=== PATIENT | female | born 1930 | race Caucasian/White ===

== ENCOUNTER 2016-11-11 20:40 | Inpatient (IN) ==
[2016-11-11] MEDS ORDERED: ONDANSETRON 4 MG/2 ML VIAL IV ONE (20:58)
[2016-11-11] MEDS ORDERED: HYDROmorphone 2 MG/ML SYRINGE IV ONE (20:58)
--- NOTE | 2016-11-11 20:59 | Emergency Department Note ---
Fall HPI - General Chief Complaint: Fall Stated Complaint: Fall Time Seen by Provider: 11/11/16 20:58 Source: patient Mode of arrival: EMS - History of Present Illness HPI Narrative: This patient says her knee gave out on her on the right side and she fell and she sustained a femur fracture. She's had both an artificial knee and hip on that side in the past. She has pain about the knee. Not much in the left hip pain and no other complaints of injury or pain. MD Complaint: fall Onset (ago): minute(s) Fall From: standing Fall Witnessed: yes, by family Place Fall Occurred: home Loss of Consciousness: none Prolonged Down Time?: no Symptoms Prior to Fall: none Context: tripped/slipped - Related Data Home Medications Medication Instructions Recorded Confirmed flaxseed oil 5 ml MISCELLANE BID ml 02/27/15 11/11/16 glucosamine sulfate 1,000 mg 1,000 mg PO QDAY cap 02/27/15 11/11/16 capsule polyethylene glycol 3350 17 gram 17 g PO QDAY each 02/27/15 11/11/16 oral powder packet hwtmydjh-Vr-qrv-Fe-FA 1 tab PO QDAY 02/10/16 11/11/16 tablet vitamin E (dl, acetate) 400 unit 400 unit PO QDAY 02/10/16 11/11/16 capsule vitamins A,C,T-mwdm-hxnwcy 14,320 1 cap PO QAM 02/10/16 11/11/16 unit-226 mg-200 unit capsule calcium carbonate 600 mg (1,500 1,500 mg PO QDAY tab 05/12/16 11/11/16 mg) tablet cholecalciferol (vitamin D3) 1,000 1,500 unit PO QDAY cap 05/12/16 11/11/16 unit capsule coenzyme Q10 100 mg capsule 100 mg PO QDAY 05/12/16 11/11/16 omeprazole 20 mg capsule,delayed 20 mg PO QAM cap 05/12/16 11/11/16 release Four wheeled walker 1 applic ONCE 11/11/16 11/11/16 Potassium Chloride 10 meq PO QAM 11/11/16 11/11/16 Warfarin [Coumadin] 2.5 mg PO QAM 11/11/16 11/11/16 Previous Rx's Medication Instructions Recorded carvedilol 3.125 mg tablet 3.125 mg PO BID #180 tab 05/12/16 furosemide 20 mg tablet 20 mg PO QDAY #30 tab 05/12/16 hydrocodone 10 mg-acetaminophen 1 tab PO Q6H PRN #90 tab 09/27/16 325 mg tablet warfarin 5 mg tablet 2.5 mg PO .COMPLEX #100 tab 11/04/16 Allergies Allergy/AdvReac Type Severity Reaction Status Date / Time Penicillins [PENICILLINS] Allergy Unknown Rash Verified 08/24/16 09:56 simvastatin [From Zocor] AdvReac Mild Weakness Verified 08/24/16 09:56 aspirin [ASPIRIN] AdvReac Unknown Nausea Verified 11/12/16 00:48 Review of Systems All systems ED: reviewed and negative except as stated. Fall PMH - Past Medical History Medical history: Reports: arthritis, atrial fibrillation, CHF, coronary artery disease, dementia, GERD, hyperlipidemia, hypertension, osteoporosis, peripheral artery disease, valvular heart disease, other Surgical history ED: Reports: cataract, cholecystectomy, hip replacement, knee replacement, orthopedic, other, pacemaker/AICD, VICTORINO/BSO, tonsillectomy Psychiatric history: Reports: no psych history Family history: Reports: other - Social History Alcohol use: Reports: None Drug use: Reports: none Physical Exam Right leg is in a splint and she does have some tenderness about the right knee. - General Limitations: no limitations General appearance: alert - Head Head exam: atraumatic - Eye Eye exam: Present: normal appearance - ENT ENT exam: normal exam - Neck Neck exam: Present: normal inspection - Chest Chest inspection: Present: normal inspection - Respiratory Respiratory exam: Present: normal lung sounds bilaterally - Cardiovascular Cardiovascular exam: Present: regular rate, normal rhythm, normal heart sounds - Abdominal Exam Abdominal exam: Present: soft. Absent: distention, tenderness - Neurological Exam Neurological exam: Present: alert - Psychiatric Psychiatric exam: Present: normal affect - Skin Skin exam: Present: warm, dry Course Vital Signs Temperature 97.8 F 11/11/16 20:42 Pulse Rate 86 11/11/16 20:42 Respiratory Rate 19 11/11/16 20:42 Blood Pressure 151/75 11/11/16 20:42 Pulse Oximetry (%) 98 11/11/16 20:42 Temperature 98.7 F 11/12/16 07:53 Pulse Rate 80 11/12/16 04:00 Respiratory Rate 18 11/12/16 07:53 Blood Pressure 142/57 11/12/16 07:53 Pulse Oximetry (%) 97 11/12/16 07:53 Fall - MDM Narrative Medical decision making narrative: Discussed the case with Dr. Kolb and Dr. Childress and the patient will be admitted to the hospital. - Lab Data Lab results reviewed: Yes I reviewed the patient's lab results. Result diagrams: 11/12/16 05:10 11/12/16 05:10 Lab Results 11/11/16 11/11/16 11/11/16 Range/Units 22:15 22:15 22:15 WBC 8.1 (4.5-11.0) K/mcL RBC 3.84 L (4.00-5.20) M/mcL Hgb 11.9 L (12.0-15.0) g/dL Hct 36.5 (36.0-48.0) % MCV 95.1 (80.0-100.0) fL MCH 31.0 (26.0-34.0) pg MCHC 32.6 (31.0-36.0) g/dL RDW 14.5 (11.5-14.5) % Plt Count 171 (140-440) K/mcL MPV 8.5 (7.4-10.4) fL Gran % 75.2 (38.0-78.0) % Lymph % (Auto) 14.8 L (15.5-49.0) % [place] % (Auto) 8.3 (1.0-9.0) % Eos % (Auto) 1.4 (0.0-7.0) % Baso % (Auto) 0.3 (0.0-2.0) % Gran # 6.1 (1.8-8.0) K/mcL Lymph # 1.2 L (1.5-4.8) K/mcL [place] # 0.7 (0.1-0.9) K/mcL Eos # 0.1 (0.0-0.7) K/mcL Baso # 0 (0.0-0.3) K/mcL POC PT 25.9 H (11.9-14.5) sec POC INR 2.2 H (0.9-1.2) Sodium 136 (133-145) mmol/L Potassium 3.9 (3.3-5.1) mmol/L Chloride 98 (96-108) mmol/L Carbon Dioxide 27 (22-30) mmol/L Anion Gap 11.0 (8-16) BUN 18 (8-23) mg/dl Creatinine 0.6 (0.6-1.1) mg/dl GFR Calculation 82 Glucose 105 (70-105) mg/dL Calcium 9.1 (8.6-10.4) mg/dl Total Bilirubin 0.4 (0.0-1.0) mg/dL AST 21 (0-37) U/l ALT 17 (0-40) U/l Alkaline Phosphatase 37 L (39-117) U/L Total Protein 6.8 (5.9-8.4) gm/dL Albumin 3.8 (3.2-5.2) gm/dL Globulin 3.0 (2.2-3.7) gm/dL Albumin/Globulin Ratio 1.3 (1.0-2.3) Urine Color Urine Appearance Urine pH (5.0-9.0) Ur Specific [place] (1.000-1.035) Urine Protein (NEG) mg/dL Urine Glucose (UA) (NEG) mg/dL Urine Ketones (NEG) mg/dL Urine Occult Blood (<0.03) mg/dL Urine Nitrate (NEG) Urine Bilirubin (NEG) mg/dL Urine Urobilinogen (NEG) mg/dL Ur Leukocyte Esterase (NEG) /uL Urine RBC (0-1) /hpf Urine WBC (0-4) /hpf Ur Squamous Epith Cells (0-4) /hpf Ur Transition Epith Cell (0-2) /hpf Urine Bacteria (0) /hpf Hyaline Casts (0-2) /lpf Urine Mucus (0) /hpf Ur Culture Indicated? 11/11/16 Range/Units 23:06 WBC (4.5-11.0) K/mcL RBC (4.00-5.20) M/mcL Hgb (12.0-15.0) g/dL Hct (36.0-48.0) % MCV (80.0-100.0) fL MCH (26.0-34.0) pg MCHC (31.0-36.0) g/dL RDW (11.5-14.5) % Plt Count (140-440) K/mcL MPV (7.4-10.4) fL Gran % (38.0-78.0) % Lymph % (Auto) (15.5-49.0) % [place] % (Auto) (1.0-9.0) % Eos % (Auto) (0.0-7.0) % Baso % (Auto) (0.0-2.0) % Gran # (1.8-8.0) K/mcL Lymph # (1.5-4.8) K/mcL [place] # (0.1-0.9) K/mcL Eos # (0.0-0.7) K/mcL Baso # (0.0-0.3) K/mcL POC PT (11.9-14.5) sec POC INR (0.9-1.2) Sodium (133-145) mmol/L Potassium (3.3-5.1) mmol/L Chloride (96-108) mmol/L Carbon Dioxide (22-30) mmol/L Anion Gap (8-16) BUN (8-23) mg/dl Creatinine (0.6-1.1) mg/dl GFR Calculation Glucose (70-105) mg/dL Calcium (8.6-10.4) mg/dl Total Bilirubin (0.0-1.0) mg/dL AST (0-37) U/l ALT (0-40) U/l Alkaline Phosphatase (39-117) U/L Total Protein (5.9-8.4) gm/dL Albumin (3.2-5.2) gm/dL Globulin (2.2-3.7) gm/dL Albumin/Globulin Ratio (1.0-2.3) Urine Color Yellow Urine Appearance Clear Urine pH 6.0 (5.0-9.0) Ur Specific [place] 1.012 (1.000-1.035) Urine Protein Neg (NEG) mg/dL Urine Glucose (UA) Negative (NEG) mg/dL Urine Ketones Neg (NEG) mg/dL Urine Occult Blood Neg (<0.03) mg/dL Urine Nitrate Neg (NEG) Urine Bilirubin Neg (NEG) mg/dL Urine Urobilinogen Neg (NEG) mg/dL Ur Leukocyte Esterase Neg (NEG) /uL Urine RBC 3 H (0-1) /hpf Urine WBC 2 (0-4) /hpf Ur Squamous Epith Cells 0 (0-4) /hpf Ur Transition Epith Cell < 1 (0-2) /hpf Urine Bacteria 0 (0) /hpf Hyaline Casts 3 H (0-2) /lpf Urine Mucus Few (0) /hpf Ur Culture Indicated? No - Radiology Data Radiology results reviewed: Yes I reviewed the patient's radiology results. (x- ray shows an oblique fracture of the distal femur on the right) Disposition Clinical Impression: Femur fracture, right Disposition: Xfer As Inpt ([facility]) Condition: Good
[2016-11-11] MEDS ORDERED: HYDROmorphone 2 MG/ML SYRINGE IV PRN ×2 (21:48→23:43)
--- NOTE | 2016-11-11 22:44 | Internal Med History&Physical ---
Medical - H&P: HPI Patient information: Note initiated : 11/11/16 at 10:41 pm Service Date, if different from initiated Date: [] Patient: Carolina Sweeney 86 y/o F admitted on for Fall. Chief Complaint: [] History of present illness: Ms. Sweeney is a 86 year old female the pacemaker, on chronic anticoagulation therapy who had a fall at her [facility] facility today. She believes she tried to stand up and turn and just did that poorly and lost her balance and fell Her memory does not appear entirely intact however. eR evaluation did show a distal right femur fracture. The patient is now admitted fortreatment. The patient otherwise denies that she has been feeling poorly lately. She denies fever or chills headaches or dizziness, new eye or ear symptoms,sore throat or cough chest pain or palpitations or heaviness, shortness of breath or wheezing, abdominal pain, nausea or vomiting or diarrhea. She does reportchronic constipation, which is managed with MiraLAX. She denies dysuria. She does have a past history of an MRSA UTI. 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/12/15 Dr Suarez - left external iliac artery Gait abnormality (Chronic) gait instability and weakness Gastroesophageal reflux (Chronic) Greater trochanteric bursitis of both hips (Chronic) 03/15/14 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 History of anemia (Chronic) Hyperlipidemia (Chronic) Hypertension (Chronic) Increased frequency of urination (Chronic) nocturnal Knee pain, 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 Chavez Influenza A (Resolved) 09/17/14- Dr. 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 Martino Urinary tract infection (Resolved) Vaccine counseling (Resolved) Volume depletion (Resolved) Surgical History H/O cervical spine surgery (Resolved) decompression. 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 History of cataract surgery (Resolved) History of cholecystectomy (Resolved) History of esophagogastroduodenoscopy (Resolved) 11/14/14- Schatki's ring 02/01/11- gastritis, duodenitis, schatzki ring History of laminectomy (Resolved) decompression C1-2 History of left hip replacement (Resolved) History of lumbosacral spine surgery (Resolved) multiple lumbar surgeries History of right hip replacement (Resolved) History of total right knee replacement (Resolved) 05/2013 History of varicose vein stripping (Resolved) Hx of colonoscopy (Resolved) 01/28/11 diverticuli, adenoma Hx of tonsillectomy (Resolved) Pacemaker (Resolved) pacemaker/defibrillator Status post VICTORINO-BSO (Resolved) Medication List calcium carbonate (Calcium) 1,500 mg (2.5 x 600 mg (1,500 mg)) PO QDAY carvedilol 3.125 mg PO BID cholecalciferol (vitamin D3) 1,500 units (1.5 x 1,000 unit) PO QDAY clobetasol 0.05% 1 applic Topical BID PRN clobetasol 0.05% 1 applic Topical BID PRN coenzyme Q10 100 mg PO QDAY flaxseed oil 5 mL Miscellaneous BID [Four wheeled walker with seat and brakes with seat and brakes] furosemide 20 mg PO QDAY glucosamine sulfate 1,000 mg PO QDAY hydrocodone-acetaminophen 10-325 mg 1 tab PO Q6H PRN lactobacillus combination no.8 (Adult Probiotic) 3,000 mmu cells PO QDAY omeprazole 20 mg PO QDAY polyethylene glycol 3350 17 grams PO QDAY potassium chloride ER 10 mEq PO QDAY 1 month ofxjrzec-Ke-iys-Fe-FA tablet ( Vitamin tablet) 1 tab PO QDAY vitamin E (dl, acetate) 400 units PO QDAY vitamins A,C,K-xjzy-spcyxt 14,320-226-200 maij-ib-jxto (PreserVision AREDS) caps PO warfarin 2.5 mg daily Allergies/Adverse Reactions Penicillins [PENICILLINS] Allergy (Unknown, Verified 08/04/16 15:13) Rash simvastatin [From Zocor] Adverse Reaction (Mild, Verified 08/04/16 15:13) Weakness aspirin [ASPIRIN] Adverse Reaction (Unknown, Verified 08/04/16 15:13) Nausea Family History sister Malignant neoplasm of breast grand-daughter Cerebrovascular Disease grand-daughter in her 30's had CVA Father Malignant neoplasm of colon Mother Cardiac disease Social History household members: alone housing: assisted living facility lives independently: No marital status: education level: high school occupational status: retired smoking status: Never smoker alcohol intake frequency: does not drink substance use type: does not use Medical - H&P: Meds Home Medications Medication Instructions Recorded Confirmed Type flaxseed oil 5 ml MISCELLANE BID ml 02/27/15 11/11/16 History glucosamine sulfate 1,000 mg 1,000 mg PO QDAY cap 02/27/15 11/11/16 History capsule polyethylene glycol 3350 17 gram 17 g PO QDAY each 02/27/15 11/11/16 History oral powder packet dkxasshk-Ef-vso-Fe-FA 1 tab PO QDAY 02/10/16 11/11/16 History tablet vitamin E (dl, acetate) 400 unit 400 unit PO QDAY 02/10/16 11/11/16 History capsule vitamins A,C,Z-lzsv-cwtsmk 14,320 1 cap PO QAM 02/10/16 11/11/16 History unit-226 mg-200 unit capsule calcium carbonate 600 mg (1,500 1,500 mg PO QDAY tab 05/12/16 11/11/16 History mg) tablet carvedilol 3.125 mg tablet 3.125 mg PO BID #180 tab 05/12/16 11/11/16 Rx cholecalciferol (vitamin D3) 1,000 1,500 unit PO QDAY cap 05/12/16 11/11/16 History unit capsule coenzyme Q10 100 mg capsule 100 mg PO QDAY 05/12/16 11/11/16 History furosemide 20 mg tablet 20 mg PO QDAY #30 tab 05/12/16 11/11/16 Rx omeprazole 20 mg capsule,delayed 20 mg PO QAM cap 05/12/16 11/11/16 History release hydrocodone 10 mg-acetaminophen 1 tab PO Q6H PRN #90 tab 09/27/16 11/11/16 Rx 325 mg tablet warfarin 5 mg tablet 2.5 mg PO .COMPLEX #100 tab 11/04/16 11/11/16 Rx Four wheeled walker 1 applic ONCE 11/11/16 11/11/16 History Potassium Chloride 10 meq PO QAM 11/11/16 11/11/16 History Warfarin [Coumadin] 2.5 mg PO QAM 11/11/16 11/11/16 History Allergies Allergy/AdvReac Type Severity Reaction Status Date / Time Penicillins [PENICILLINS] Allergy Unknown Rash Verified 08/24/16 09:56 simvastatin [From Zocor] AdvReac Mild Weakness Verified 08/24/16 09:56 aspirin [ASPIRIN] AdvReac Unknown Nausea Verified 11/12/16 00:48 Medical - H&P: Exam - Constitutional Vitals: Temp Pulse Resp BP Pulse Ox 97.8 F 79 19 99/72 97 11/11/16 20:42 11/11/16 22:30 11/11/16 20:42 11/11/16 22:30 11/11/16 22:30 Exam: n exam, she is a well-developed well-nourished elderly female who is in no acute distress unless her right leg is touched. Head: Normocephalic, atraumatic. eyes: PERRLA, EOMI, anicteric. Ears: TMs and canals are clear. Pharynx:Pharynx is clear. Teeth are in good repair. She does have a partial bridge in place. Neck; Is supple, without obvious lymphadenopathy, JVD, thyromegaly, bruits. cardiac exam shows regular rate and rhythm, with normal S1 and S2. there may be a 1/6 systolic ejection murmur, but no rubs or gallops are noted. Lungs are clear to auscultation, without rales, rhonchi, wheezes. Abdomen is soft and nontender with no obvious masses. Extremities: The right upper leg is quite swollen, and is heldin a partially flexed position on a pillow. She has a great deal of pain of the right leg is touched. Left lower extremity is normal in appearance, without cyanosis, clubbing, edema. Pulses appear intact bilaterally. Neurologic exam: The patient appears a bit forgetful, although she is quite conversational. Motor exam is grossly nonfocal. Skin exam does not show any rashes or other worrisome lesions. Medical - H&P: Reslt - Labs CBC & Chem 7: 11/12/16 05:10 11/12/16 05:10 Labs: PT/INR; 25/2.2 EKG:appears to be paced with a heart rate of about 70. Chest x-ray:he heart is markedly enlarged, but unchanged. Pacemaker leads are seen. There is minor upper pulmonary vessel distention. Femur x-ray:x-ray of the right leg shows a mildly displaced and minimally angulated spiral fracture of the distal femoral diaphysis. Right hip and right knee prostheses are in place as well. Head CT:head CT showed mild atrophy and chronic ischemic changes, typical for age. 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 Martino Current visit: No Status: Chronic - Narrative A/P Narrative: #1. Orthopedics. -Femur fracture. Orthopedics will evaluate in the morning regarding possible surgery Patient will be made nothing by mouth for the morning, and I will hold off on DVT prophylaxis until the decision is made. -warfarin will be held. the patient may need vitamin K prior to surgery depending on what orthopedics INR goal is. #2. Cardiac. -history of coronary disease and CHF..continue perioperative Coreg and Lasix. -history of atrial fibrillation.-resume warfarin after surgery. Consider fuse cutter postop. -because of her cardiac history, she will obviously be at increased risk for complications of surgery. She will need close follow-up during the perioperative period. -Also continue close monitoring of blood pressure. #3. Chronic pain, appears likely, given her history. #4. DVT prophylaxis: I would expect we will resume warfarin postop. #5. CODE STATUS:we believe the patient is a full code, although this needs to be verified with her daughter, who has her POA. #6. Neurologic. History of dementia. #7. GI. Continue proton pump inhibitor for ulcer prophylaxis. #8. Infectious disease. -the patient does have a history of an MRSA UTI. Will check a screening urinalysis. #9. History of osteoporosis, which likely contributed to her fracture. Continue calcium and vitamin D supplements. it is not entirely clear if she has been receiving probably injections lately. this visit took approximately 60 minutes, to review the patient's case with the TAMMY Anderson, review her records and test results, interview and examine her, and write orders.
[2016-11-11 22:56] LABS: Basophils # (Auto) 0 K/mcL (0.0-0.3); Basophils % (Auto) 0.3 % (0.0-2.0); Eosinophils # (Auto) 0.1 K/mcL (0.0-0.7); Eosinophils % (Auto) 1.4 % (0.0-7.0); Granulocytes % (Auto) 75.2 % (38.0-78.0); Lymphocytes # (Auto) 1.2 K/mcL (1.5-4.8); Lymphocytes % (Auto) 14.8 % (15.5-49.0); Mean Cell Volume 95.1 fL (80.0-100.0); Mean Corpuscular HGB Conc 32.6 g/dL (31.0-36.0); Monocytes # (Auto) 0.7 K/mcL (0.1-0.9); Monocytes % (Auto) 8.3 % (1.0-9.0); Platelet Count 171 K/mcL (140-440); RBC 3.84 M/mcL (4.00-5.20); Red Cell Distribution Width 14.5 % (11.5-14.5)
[2016-11-11 23:04] LABS: ALT/SGPT 17 U/l (0-40); Albumin 3.8 gm/dL (3.2-5.2); Albumin/Globulin Ratio 1.3 (1.0-2.3); Alkaline Phosphatase 37 U/L (39-117); Blood Urea Nitrogen 18 mg/dl (8-23)
[2016-11-11 23:37] LABS: Appearance,Urine CLEAR; Bacteria,Urine 0 /hpf (0); Bilirubin,Urine NEG (NEG); Color,Urine YELLOW; Glucose,Urine (UA) NEGATIVE (NEG); Leukocyte Esterase,Urine NEG /uL (NEG); Mucus,Urine FEW /hpf (0); Nitrate,Urine NEG (NEG); Protein,Urine NEG (NEG); Specific Gravity,Urine 1.012 (1.000-1.035); Urine Blood NEG mg/dL (<0.03); Urine Hyaline Cast 3 /lpf (0-2); Urine RBC 3 /hpf (0-1); Urine Squamous Epithelial Cell 0 /hpf (0-4); Urine Transitional Epi Cells < 1 /hpf (0-2); Urine WBC 2 /hpf (0-4); Urobilinogen,Urine NEG (NEG)
[2016-11-11] MEDS ORDERED: MAGNESIUM HYDROXIDE 30 ML ORAL.SUSP PO PRN (23:43)
[2016-11-11] MEDS ORDERED: HYDROcodone/APAP 10/325MG TABLET PO PRN (23:43)
[2016-11-11] MEDS ORDERED: NALOXONE HCL 0.4 MG/ML VIAL IV PRN (23:43)
[2016-11-11] MEDS ORDERED: ONDANSETRON ODT 4 MG TABLET SL PRN (23:43)
[2016-11-11] MEDS ORDERED: ACETAMINOPHEN 325 MG TABLET PO PRN (23:43)
[2016-11-11] MEDS ORDERED: HYDROmorphone 2 MG/ML SYRINGE ONE (23:56)
[2016-11-12] MEDS ORDERED: HYDROmorphone 2 MG/ML SYRINGE IV PRN ×4 (00:24→20:29)
[2016-11-12] MEDS ORDERED: HYDROmorphone 2 MG/ML SYRINGE ONE ×2 (03:17→20:33)
[2016-11-12] MEDS: 0.9 % SODIUM CHLORIDE 10 ML SYRINGE IV SCH ×3 (05:29→22:52)
[2016-11-12] MEDS ORDERED: PHYTONADIONE 10 MG/ML AMPUL SQ ONE (06:21)
[2016-11-12 06:22] LABS: Basophils # (Auto) 0 K/mcL (0.0-0.3); Basophils % (Auto) 0.2 % (0.0-2.0); Eosinophils # (Auto) 0.1 K/mcL (0.0-0.7); Eosinophils % (Auto) 1.4 % (0.0-7.0); Granulocytes % (Auto) 73.5 % (38.0-78.0); Lymphocytes # (Auto) 1.3 K/mcL (1.5-4.8); Lymphocytes % (Auto) 14.6 % (15.5-49.0); Mean Cell Volume 94.7 fL (80.0-100.0); Mean Corpuscular HGB Conc 32.2 g/dL (31.0-36.0); Mean Corpuscular Hemoglobin 30.5 pg (26.0-34.0); Monocytes # (Auto) 0.9 K/mcL (0.1-0.9); Monocytes % (Auto) 10.3 % (1.0-9.0); Platelet Count 168 K/mcL (140-440); RBC 3.68 M/mcL (4.00-5.20); Red Cell Distribution Width 14.6 % (11.5-14.5)
[2016-11-12 06:50] LABS: ALT/SGPT 15 U/l (0-40); Albumin 3.8 gm/dL (3.2-5.2); Albumin/Globulin Ratio 1.5 (1.0-2.3); Alkaline Phosphatase 33 U/L (39-117); Blood Urea Nitrogen 15 mg/dl (8-23)
--- NOTE | 2016-11-12 06:57 | Cat Scan Report ---
CLINICAL INFORMATION: ] Closed head injury - patient on warfarin COMPARISON: None. TECHNIQUE: 2.5 mm helical slices were obtained in the skull base to vertex. Following reconstruction, axial reformatted images were reviewed at bone and parenchymal windows. FINDINGS: The ventricles, sulci, fissures, and cisterns are symmetrically enlarged palpable with mild age-related atrophy - no extra-axial fluid collections or masses are appreciated. Patchy chronic ischemic changes in the cerebral white matter typical for age and unchanged from previous study. There is no acute cerebral hemorrhage, mass effect, edema or other acute finding. Bone windows shows no fracture or other osseous abnormality. IMPRESSION: Mild atrophy and chronic ischemic changes in the cerebral white matter - typical for age and unchanged from previous study. No hemorrhage or other acute process. Interpreted and Authenticated by: Nitin Morrison 11/12/16
--- NOTE | 2016-11-12 06:59 | XRay Report ---
CLINICAL INFORMATION: Trauma COMPARISON: None. FINDINGS: There is a mildly displaced minimally comminuted spiral fracture of the distal femoral diaphysis. The distal fragment displaced less than 1 cm medially and posteriorly. There is also very slight angulation deformity. Right hip prostheses and right total knee prostheses are in anatomic alignment without evidence of loosening or infection. Soft tissue swelling over the fracture site expected. IMPRESSION: Mildly displaced and minimally angulated spiral fracture of the distal femoral diaphysis. Interpreted and Authenticated by: Nitin Morrison 11/12/16
--- NOTE | 2016-11-12 07:01 | XRay Report ---
CLINICAL INFORMATION: Trauma COMPARISON: 08/24/2016 FINDINGS: The heart is markedly enlarged, but unchanged. Pacemaker and leads in stable satisfactory position. Mediastinum is unremarkable. Upper lobe pulmonary vessels are slightly distended, but there is no edema. Few calcified granulomas in the perihilar region seen as before. No infiltrates or effusions. No evidence of fracture - bones are normal IMPRESSION: No acute posttraumatic change. Borderline CHF or volume overload Interpreted and Authenticated by: Nitin Morrison 11/12/16
[2016-11-12] MEDS: CARVEDILOL 3.125 MG TABLET PO SCH ×2 (07:24→16:55)
[2016-11-12] MEDS: CALCIUM CARBONATE 500 MG TAB.CHEW CHEWED SCH ×2 (07:29→15:27)
[2016-11-12] MEDS ORDERED: PANTOPRAZOLE 40 MG TABLET PO SCH (07:30)
[2016-11-12] MEDS: POTASSIUM CHLORIDE 10 MEQ TABLET PO SCH ×2 (07:30→07:33)
[2016-11-12] MEDS ORDERED: POLYETHYLENE GLYCOL 3350 17 GM PACKET PO SCH (09:00)
[2016-11-12] MEDS ORDERED: FAMOTIDINE 20 MG TABLET PO SCH (09:00)
[2016-11-12] MEDS ORDERED: VITAMIN D3 1,000 UNIT TABLET PO SCH (09:00)
[2016-11-12] MEDS ORDERED: DOCUSATE SODIUM 100 MG CAPSULE PO SCH ×3 (09:00→21:00)
[2016-11-12] MEDS ORDERED: GLUCOSAMINE/CHONDROITIN SULF A 1 CAP CAPSULE PO SCH (09:00)
[2016-11-12] MEDS ORDERED: NON FORMULARY MEDICATION 1 DOSE MISCELL (Ubidecarenone [Coenzyme Q10] 100 MG) PO SCH (09:00)
[2016-11-12] MEDS ORDERED: PRENATAL VIT/IRON FUMARATE/FA 1 TAB TABLET PO SCH (09:00)
[2016-11-12] MEDS ORDERED: FUROSEMIDE 20 MG TABLET PO SCH (09:00)
[2016-11-12] MEDS ORDERED: 0.9 % SODIUM CHLORIDE 250 ML IV SCH ×2 (09:30→20:29)
--- NOTE | 2016-11-12 10:56 | Internal Med Progress Note ---
Medical - PN: Subj Patient information: Note initiated : 11/12/16 at 10:56 am Service Date, if different from initiated Date: [] Patient: Carolina Sweeney 86 y/o F admitted on 11/11/16 for Fall/Right Femur Fracture. Chief Complaint: [] Interval history: November 11, 2016:History of present illness: Ms. Sweeney is a 86 year old female the pacemaker, on chronic anticoagulation therapy who had a fall at her [place] facility today. She believes she tried to stand up and turn and just did that poorly and lost her balance and fell Her memory does not appear entirely intact however. eR evaluation did show a distal right femur fracture. The patient is now admitted for treatment. She does have a past history of an MRSA UTI. November 12, 2016: This morning,the patient reports she is feeling fine, as long she does notmove her right leg at all. She denies fever or chills, chest pain palpitations, shortness of breath. She denies abdominalpain, nausea or vomiting , diarrhea or constipation, dysuria. Nursing staff did note that her O2 saturations tend to drop during sleep, so oxygen is in place. -INR remains elevated today, and orthopedics needs this to be less than 1.4 prior to surgery. - Constitutional Vitals: Vital Signs Temp Pulse Resp BP Pulse Ox 98.7 F 80 18 142/57 97 11/12/16 07:53 11/12/16 04:00 11/12/16 07:53 11/12/16 07:53 11/12/16 07:53 Period Temp Pulse Resp BP Sys/Yu Pulse Ox Last 24 Hr 97.5 F-98.7 F 79-80 14-19 114-142/54-99 94-98 Intake and Output 11/11/16 11/12/16 11/12/16 21:59 05:59 13:59 Output Total 475 / 875 Balance -475 / -875 Intake & Output: Intake & Output 11/11/16 11/12/16 11/12/16 21:59 05:59 13:59 Output Total 475 / 875 Balance -475 / -875 Output: Urine Catheter Amount 475 / 475 Exam: on exam, the patient is in no acute distress. Neck shows no obvious JVD or lymphadenopathy. Cardiac exam shows regular rate and rhythm. Lungs are clear to auscultation. Abdomen is soft and nontender. extremities:Right upper leg continues markedly swollen. Distal leg has good pulses.Left lower extremity appears normal. Neurologic exam is grossly nonfocal. Medical - PN: Obj Da - Labs CBC & Chem 7: 11/12/16 05:10 11/12/16 05:10 Labs: Abnormal Lab Results 11/12/16 11/12/16 11/12/16 06:30 05:10 05:10 RBC 3.68 L Hgb 11.2 L Hct 34.9 L RDW 14.6 H Lymph % (Auto) 14.6 L [place] % (Auto) 10.3 H Lymph # 1.3 L PT 29.3 H INR 2.7 H Glucose 111 H Alkaline Phosphatase 33 L iNR at noon, has dropped to 1.6. November 11: urinalysis from November 11, was essentially normal. EKG:appears to be paced with a heart rate of about 70. Chest x-ray:he heart is markedly enlarged, but unchanged. Pacemaker leads are seen. There is minor upper pulmonary vessel distention. Femur x-ray:x-ray of the right leg shows a mildly displaced and minimally angulated spiral fracture of the distal femoral diaphysis. Right hip and right knee prostheses are in place as well. Head CT:head CT showed mild atrophy and chronic ischemic changes, typical for age. Meds: Medications Acetaminophen (Tylenol) 650 mg PO Q6HP PRN PRN Reason: PAIN/FEVER > 101 Acetaminophen/Hydrocodone Bitart ([place] 10/325mg) 1 tab PO Q4-6HP PRN PRN Reason: Pain Calcium Carbonate/Glycine (Tums) 500 mg CHEWED BIDAC [facility] Last Admin: 11/12/16 07:29 Dose: Not Given Carvedilol (Coreg) 3.125 mg PO BIDCC [facility] Last Admin: 11/12/16 07:24 Dose: 3.125 mg Docusate Sodium (Colace) 100 mg PO BID [facility] Last Admin: 11/12/16 07:29 Dose: Not Given Famotidine (Pepcid) 20 mg PO BID [facility] Last Admin: 11/12/16 07:30 Dose: Not Given Furosemide (Lasix) 20 mg PO QDAY [facility] Last Admin: 11/12/16 07:30 Dose: Not Given Glucosamine/Chondroitin (Glucosamine-Chondroitin Cap) 1 cap PO DAILY [facility] Last Admin: 11/12/16 07:29 Dose: Not Given Hydromorphone HCl (Dilaudid) 0.5 mg IV Q1HP PRN PRN Reason: Pain Sodium Chloride (Sodium Chloride 0.9%) 250 mls @ 20 mls/hr IV .[id number] [facility] Stop: 11/12/16 21:59 Last Admin: 11/12/16 09:39 Dose: Not Given Magnesium Hydroxide (Milk Of Magnesia) 30 ml PO DAILYP PRN PRN Reason: Constipation Naloxone HCl (Narcan) 0.1 mg IV Q2MIN PRN PRN Reason: Opiate Reversal Ondansetron HCl (Zofran Odt) 4 mg SL Q6HP PRN PRN Reason: Nausea And Vomiting Pantoprazole Sodium (Protonix) 40 mg PO QAMAC [facility] Last Admin: 11/12/16 07:29 Dose: Not Given Polyethylene Glycol (Miralax) 17 gm PO QDAY [facility] Last Admin: 11/12/16 07:33 Dose: Not Given Potassium Chloride (Kdur) 10 meq PO QAC [facility] Last Admin: 11/12/16 07:33 Dose: Not Given Prenat Multivit/Sunflower/Iron/Folic Ac ( Vitamin) 1 tab PO DAILY [facility] Last Admin: 11/12/16 07:30 Dose: Not Given Sodium Chloride (Saline Flush) 10 ml IV Q8 [facility] Last Admin: 11/12/16 05:29 Dose: Not Given Vitamin D (Vitamin D3) 1,500 unit PO DAILY [facility] Last Admin: 11/12/16 07:30 Dose: Not Given Medical - PN: A/P - Time Spent With Patient Total time spent is greater than 50% in coordination of care (as documented) at patient's floor/unit and/or counseling patient: (1) Femur fracture Status: Acute Current Visit: Yes (2) Atrial fibrillation Status: Chronic Current Visit: No (3) CAD (coronary artery disease) Status: Chronic Current Visit: No (4) Hypertension Status: Chronic Current Visit: No (5) snf current use of anticoagulant therapy Problem details: currently on coumadin Status: Chronic Current Visit: No (6) Memory Loss Status: Chronic Current Visit: No (7) Osteoporosis Problem details: T=-4.5 left forearm Status: Chronic Current Visit: No (8) Sinoatrial node dysfunction Problem details: 09/13/14- Dr. Martino Status: Chronic Current Visit: No - Narrative A/P Narrative: #1. Orthopedics. -Femur fracture. orthopedic surgery is tentatively planned for this evening. -warfarin is on hold, and vitamin K and 1 unit of FFP were given this morning. INR is down to 1.6, and should continue to drop over the next 6 hours, so I think we can proceed with surgery this evening. #2. Cardiac. -history of coronary disease and CHF..continue perioperative Coreg and Lasix. -history of atrial fibrillation.-resume warfarin after surgery. I would like to resume her Coumadin this evening. Consider slip tender postop. -because of her cardiac history, she will obviously be at increased risk for complications of surgery. She will need close follow-up during the perioperative period. -Also continue close monitoring of blood pressure. #3. Chronic pain, appears likely, given her history. #4. DVT prophylaxis: I would expect we will resume warfarin postop. #5. CODE STATUS: The patient seemed to want a full code as of last evening. Her daughter is here this morning, and is her POA. The daughter thinks the living will indicates she prefers a DNR status. We will leave her as a full code, until I have a chance to discuss further. #6. Neurologic. History of dementia. #7. GI. Continue proton pump inhibitor for ulcer prophylaxis. #8. Infectious disease. -the patient does have a history of an MRSA UTI. urinalysis does not show signs of infection at this time. #9. History of osteoporosis, which likely contributed to her fracture. Continue calcium and vitamin D supplements. it is not entirely clear if she has been receiving probably injections lately. approximate 35 minutes was spent today, reviewing the patient's test results, conferring with staff and orthopedics, writing orders and then reviewing follow- up test results, as well as interviewing and examining the patient and reviewing the plan with her and her daughter Medical - PN: Qual - VTE Deep Vein Thrombosis/Pulmonary Embolism Present on Admission: No
[2016-11-12] MEDS ORDERED: ceFAZolin 1 GM VIAL IV SCH ×3 (17:00→20:29)
[2016-11-12] MEDS ORDERED: SUCCINYLCHOLINE 20 MG/ML ML IV ONE (17:05)
[2016-11-12] MEDS ORDERED: TRANEXAMIC ACID 1,000 MG/10 ML VIAL IV ONE ×2 (17:05→19:21)
[2016-11-12] MEDS ORDERED: ONDANSETRON 4 MG/2 ML VIAL IV ONE (17:05)
[2016-11-12] MEDS ORDERED: GLYCOPYRROLATE 0.2 MG/ML VIAL IV ONE (17:05)
[2016-11-12] MEDS ORDERED: fentaNYL 250 MCG/5 ML VIAL IV ONE (17:05)
[2016-11-12] MEDS ORDERED: PHENYLEPHRINE 10 MG/ML VIAL IV ONE (17:05)
[2016-11-12] MEDS ORDERED: KETAMINE 100 MG/ML ML IV ONE (17:05)
[2016-11-12] MEDS ORDERED: LIDOCAINE HCL/PF 100 MG/5 ML SYRINGE IV ONE (17:05)
[2016-11-12] MEDS ORDERED: ETOMIDATE 20 MG/10 ML VIAL IV ONE (17:05)
[2016-11-12] MEDS ORDERED: MIDAZOLAM 5 MG/5 ML VIAL IV ONE (17:05)
[2016-11-12] MEDS ORDERED: ceFAZolin 1 GM VIAL ONE (18:30)
[2016-11-12] MEDS ORDERED: fentaNYL 100 MCG/2 ML VIAL IV PRN (19:17)
[2016-11-12] MEDS ORDERED: LABETALOL 5 MG/ML ML IV PRN (19:17)
[2016-11-12] MEDS ORDERED: METHOCARBAMOL 1,000 MG/10 ML VIAL IV PRN (19:17)
[2016-11-12] MEDS ORDERED: PROMETHAZINE 25 MG/ML VIAL IV PRN (19:17)
[2016-11-12] MEDS ORDERED: BENZOCAINE/MENTHOL 1 LOZENGE PO PRN ×3 (19:17→20:29)
[2016-11-12] MEDS ORDERED: MEPERIDINE 25 MG/ML SYRINGE IV PRN (19:17)
[2016-11-12] MEDS ORDERED: IPRATROPIUM/ALBUTEROL 3 ML AMPUL.NEB NEB PRN (19:17)
--- NOTE | 2016-11-12 19:19 | Brief Operative Note ---
Date of procedure: 11/12/16 Pre-op diagnosis: right distal femur periprosthetic fracture Post-op diagnosis: same Procedure: open reduction internal fixation of right periprosthetic femur fracture Grafts/Implants: Yes Anesthesia: GETA Complications: none Surgeon: Nitin Kolb [employer] Workers: Lior Dela Cruz Estimated blood loss (cc): 400 Specimens Removed/Pathology: none sent Condition: stable Disposition: PACU
[2016-11-12] MEDS ORDERED: ONDANSETRON ODT 4 MG TABLET SL PRN ×3 (19:21→20:29)
[2016-11-12] MEDS ORDERED: MAGNESIUM HYDROXIDE 30 ML ORAL.SUSP PO PRN ×3 (19:21→20:29)
[2016-11-12] MEDS ORDERED: ONDANSETRON 4 MG/2 ML VIAL IV PRN ×2 (19:21→20:29)
[2016-11-12] MEDS ORDERED: BISACODYL 10 MG SUPP.RECT PR PRN ×2 (19:21→20:29)
[2016-11-12] MEDS ORDERED: METHOCARBAMOL 750 MG TABLET PO PRN ×2 (19:21→20:29)
[2016-11-12] MEDS ORDERED: HYDROcodone/APAP 10/325MG TABLET PO PRN ×3 (19:21→20:29)
[2016-11-12] MEDS ORDERED: FLEETS ADULT ENEMA PR PRN ×2 (19:21→20:29)
[2016-11-12] MEDS ORDERED: POLYETHYLENE GLYCOL 3350 17 GM PACKET PO PRN ×2 (19:21→20:29)
[2016-11-12] MEDS ORDERED: LACTATED RINGERS 1,000 ML IV SCH (19:30)
[2016-11-12] MEDS ORDERED: 0.9 % SODIUM CHLORIDE 1,000 ML IV SCH (19:30)
[2016-11-12] MEDS: HYDROmorphone 2 MG/ML SYRINGE IV PRN (19:40)
[2016-11-12] MEDS ORDERED: NALOXONE HCL 0.4 MG/ML VIAL IV PRN (20:29)
[2016-11-12] MEDS ORDERED: ACETAMINOPHEN 325 MG TABLET PO PRN (20:29)
[2016-11-12] MEDS: 0.9 % SODIUM CHLORIDE 1,000 ML IV SCH (20:49)
[2016-11-12] MEDS ORDERED: SENNOSIDES 1 TABLET PO SCH ×2 (21:00)
[2016-11-12] MEDS: WARFARIN 2.5 MG TABLET PO SCH (22:50)
[2016-11-12] MEDS: DOCUSATE SODIUM 100 MG CAPSULE PO SCH (22:51)
[2016-11-12] MEDS: FAMOTIDINE 20 MG TABLET PO SCH (22:51)
[2016-11-13] MEDS ORDERED: ACETAMINOPHEN 1,000 MG/100 ML BOTTLE IV SCH
[2016-11-13] MEDS: ceFAZolin 1 GM VIAL IV SCH ×2 (03:13→10:40)
[2016-11-13] MEDS: HYDROmorphone 2 MG/ML SYRINGE IV PRN ×2 (04:15→09:06)
[2016-11-13] MEDS: 0.9 % SODIUM CHLORIDE 10 ML SYRINGE IV SCH ×3 (05:45→23:18)
[2016-11-13] MEDS ORDERED: PANTOPRAZOLE 40 MG TABLET PO SCH (07:30)
[2016-11-13] MEDS: 0.9 % SODIUM CHLORIDE 1,000 ML IV SCH ×3 (07:34→18:16)
[2016-11-13] MEDS: CALCIUM CARBONATE 500 MG TAB.CHEW CHEWED SCH ×2 (07:57→18:16)
[2016-11-13] MEDS ORDERED: POTASSIUM CHLORIDE 10 MEQ TABLET PO SCH (08:00)
[2016-11-13] MEDS ORDERED: CARVEDILOL 3.125 MG TABLET PO SCH (08:00)
--- NOTE | 2016-11-13 08:13 | Orthopedic Progress Note ---
Subjective Patient information: Note initiated : 11/13/16 at 8:10 am Service Date, if different from initiated Date: [] Patient: Carolina Sweeney 86 y/o F admitted on 11/11/16 for Fall/Right Femur Fracture. Chief Complaint: [] Interval history: doing ok today. pain under control Objective Vital signs: Vital Signs Temp Pulse Pulse Resp BP Pulse Ox 11/13/16 06:00 16 99/49 92 11/13/16 05:03 16 100/46 93 11/13/16 04:00 98.6 F 16 100/54 94 11/13/16 03:00 16 102/52 93 11/13/16 02:04 79 18 94 11/13/16 02:00 18 97/48 92 11/13/16 01:00 16 99/49 96 11/13/16 00:57 80 18 94 11/13/16 00:07 98.2 F 16 108/50 100 11/12/16 23:00 18 107/47 98 11/12/16 22:30 98.0 F 16 95/55 98 11/12/16 21:30 97.8 F 18 108/95 99 11/12/16 21:05 97.9 F 16 105/46 100 11/12/16 20:50 97.9 F 16 118/60 96 11/12/16 20:35 98.0 F 16 120/52 98 11/12/16 20:20 98.0 F 18 118/54 96 11/12/16 19:55 98.1 F 79 12 131/50 100 11/12/16 19:40 80 14 134/48 96 11/12/16 19:25 98.0 F 82 12 130/54 98 11/12/16 11:43 98.5 F 16 136/56 97 Intake and Output 11/12/16 11/13/16 11/13/16 21:59 05:59 13:59 Intake Total 1500 / 1500 1000 / 1000 Output Total 1600 / 1600 200 / 200 Balance -100 / -100 -200 / -200 1000 / 1000 Intake: IV 1000 / 1000 Sodium Chloride 0.9% 1, 1000 / 1000 000 ml @ 100 mls/hr IV . Q10H [facility] Rx#:[id number] IV - Manual Only 1500 / 1500 Output: Urine Catheter Amount 1400 / 1400 200 / 200 Estimated Blood Loss 200 / 200 Other: Meal Dinner Percent of Meal Consumed NPO Weight 155 lb 4.8 oz Intake & Output: Intake & Output 11/12/16 11/13/16 11/13/16 21:59 05:59 13:59 Intake Total 1500 / 1500 1000 / 1000 Output Total 1600 / 1600 200 / 200 Balance -100 / -100 -200 / -200 1000 / 1000 Weight 155 lb 4.8 oz Intake: IV 1000 / 1000 Sodium Chloride 0.9% 1, 1000 / 1000 000 ml @ 100 mls/hr IV . Q10H [facility] Rx#:[id number] IV - Manual Only 1500 / 1500 Output: Urine Catheter Amount 1400 / 1400 200 / 200 Estimated Blood Loss 200 / 200 Other: Meal Dinner Percent of Meal Consumed NPO Incision: Yes healing, Yes clean and dry Incision clean and dry: Yes Dressing: Yes clean, Yes dry, Yes intact Weight bearing status: non Neurological exam IM: Yes alert, Yes oriented X3, Yes motor sensory intact, Yes neurovascular intact Extremities exam IM: No calf tenderness, Yes Foot pink and warm, Yes neurovascular intact - Labs CBC & BMP: 11/13/16 04:10 11/12/16 05:10 Labs: Orthopedic Labs 11/13/16 11/12/16 11/12/16 04:10 14:00 06:30 POC PT 18.4 H PT 22.7 H 29.3 H POC INR 1.6 H INR 1.9 H 2.7 H 11/13/16 11/12/16 04:10 05:10 Hgb 9.4 L 11.2 L Hct 28.8 L 34.9 L Assessment and Plan (1) Femur fracture, right pod 1 s/p ORIF of right dai-prostetic femur fracture nwb pain control dvt prophylaxis pt- ok rom knee and hip will need snf Status: Acute
--- NOTE | 2016-11-13 08:32 | XRay Report ---
CLINICAL INFORMATION: Follow up spiral fracture distal femoral diaphysis COMPARISON: Preoperative femur films from 11/11/2016. FINDINGS: The spiral fracture , through the distal femoral diaphysis, has been reduced to anatomic alignment and transfixed by plate and multiple screws. Right total hip and knee prostheses remain anatomically aligned without loosening or infection. Soft tissue swelling seen in the surgical site - as expected IMPRESSION: ORIF spiral fracture distal femur in anatomic alignment Interpreted and Authenticated by: Nitin Morrison 11/13/16
[2016-11-13] MEDS ORDERED: FUROSEMIDE 20 MG TABLET PO SCH (09:00)
[2016-11-13] MEDS ORDERED: POLYETHYLENE GLYCOL 3350 17 GM PACKET PO SCH (09:00)
[2016-11-13] MEDS ORDERED: PRENATAL VIT/IRON FUMARATE/FA 1 TAB TABLET PO SCH (09:00)
[2016-11-13] MEDS ORDERED: GLUCOSAMINE/CHONDROITIN SULF A 1 CAP CAPSULE PO SCH (09:00)
[2016-11-13] MEDS ORDERED: VITAMIN D3 1,000 UNIT TABLET PO SCH (09:00)
[2016-11-13] MEDS: DOCUSATE SODIUM 100 MG CAPSULE PO SCH ×2 (10:15→21:14)
[2016-11-13] MEDS: FAMOTIDINE 20 MG TABLET PO SCH ×2 (10:16→21:14)
--- NOTE | 2016-11-13 13:30 | Internal Med Progress Note ---
Medical - PN: Subj Patient information: Note initiated : 11/13/16 at 1:30 pm Service Date, if different from initiated Date: [] Patient: Carolina Sweeney 86 y/o F admitted on 11/11/16 for Fall/Right Femur Fracture. Chief Complaint: [] Interval history: November 11, 2016:History of present illness: Ms. Sweeney is a 86 year old female the pacemaker, on chronic anticoagulation therapy who had a fall at her [place] facility today. She believes she tried to stand up and turn and just did that poorly and lost her balance and fell Her memory does not appear entirely intact however. eR evaluation did show a distal right femur fracture. The patient is now admitted for treatment. She does have a past history of an MRSA UTI. November 12, 2016: This morning,the patient reports she is feeling fine, as long she does not move her right leg at all. She denies fever or chills, chest pain palpitations, shortness of breath. She denies abdominal pain, nausea or vomiting, diarrhea or constipation, dysuria. Nursing staff did note that her O2 saturations tend to drop during sleep, so oxygen is in place. -INR remains elevated today, and orthopedics needs this to be less than 1.4 prior to surgery. November 13, 2016: the patient did have her right leg ORIF yesterday, after reversal of her Coumadin. She did have some confusion postop, and was transferred to the ICU and telemetry for closer observation. She has done pretty well overnight. Today she has a fair amount of pain with any movement, but otherwise does not have a lot of complaints. She denies fever or chills, chest pain or palpitations, shortness of breath or cough. She initially denied any GI symptoms, but did complain of soreness in the right upper quadrant area on exam. -she is to remain completely nonweightbearing on her leg for at least 4 weeks Physical therapy was in to evaluate her today, but she could not tolerate much at this time. - Constitutional Vitals: Vital Signs Temp Pulse Resp BP Pulse Ox 98.7 F 80 16 102/48 96 11/13/16 13:00 11/13/16 13:00 11/13/16 13:00 11/13/16 13:00 11/13/16 13:00 Period Temp Pulse Resp BP Sys/Yu Pulse Ox Last 24 Hr 97.8 F-98.8 F 79-83 12-20 95-134/30-95 92-100 Intake and Output 11/12/16 11/13/16 11/13/16 21:59 05:59 13:59 Intake Total 1500 / 1500 1240 / 1240 Output Total 1600 / 1600 200 / 200 Balance -100 / -100 -200 / -200 1240 / 1240 Weight 155 lb 4.8 oz Intake & Output: Intake & Output 11/12/16 11/13/16 11/13/16 21:59 05:59 13:59 Intake Total 1500 / 1500 1240 / 1240 Output Total 1600 / 1600 200 / 200 Balance -100 / -100 -200 / -200 1240 / 1240 Weight 155 lb 4.8 oz Intake: IV 1000 / 1000 Sodium Chloride 0.9% 1, 1000 / 1000 000 ml @ 100 mls/hr IV . Q10H [facility] Rx#:[id number] Oral 240 / 240 IV - Manual Only 1500 / 1500 Output: Urine Catheter Amount 1400 / 1400 200 / 200 Estimated Blood Loss 200 / 200 Other: Meal Dinner Percent of Meal Consumed NPO Exam: On exam, she is in no acute distress. She does seem slightly confused. She does have family in the room with her this morning. Neck is supple without obvious JVD. Cardiac exam shows regular rate and rhythm, which is paced. Lungs are clear to auscultation. Abdomen: She did complain of some discomfort in her right upper quadrant when I tried to get her to sit up, but I can't really elicit any significant tenderness in the right upper quadrant or over the right lower ribs with palpation. She notes she had rib fractures a few months ago, and she may have some soreness left over from that. Otherwise bowel sounds are active. Extremities: Right leg continues quite swollen, and is currently bandaged and in a brace.. Left leg appears normal. Neurologic: The patient did have some confusion overnight, but that clears clearer and calmer this morning. Otherwise exam is grossly nonfocal. Medical - PN: Obj Da - Labs CBC & Chem 7: 11/13/16 04:10 11/12/16 05:10 Labs: Abnormal Lab Results 11/13/16 11/13/16 11/12/16 04:10 04:10 14:00 RBC Hgb 9.4 L Hct 28.8 L RDW Lymph % (Auto) [place] % (Auto) Lymph # POC PT 18.4 H PT 22.7 H POC INR 1.6 H INR 1.9 H Glucose Alkaline Phosphatase 11/12/16 11/12/16 11/12/16 06:30 05:10 05:10 RBC 3.68 L Hgb 11.2 L Hct 34.9 L RDW 14.6 H Lymph % (Auto) 14.6 L [place] % (Auto) 10.3 H Lymph # 1.3 L POC PT PT 29.3 H POC INR INR 2.7 H Glucose 111 H Alkaline Phosphatase 33 L November 11: urinalysis from November 11, was essentially normal. EKG:appears to be paced with a heart rate of about 70. Chest x-ray:he heart is markedly enlarged, but unchanged. Pacemaker leads are seen. There is minor upper pulmonary vessel distention. Femur x-ray:x-ray of the right leg shows a mildly displaced and minimally angulated spiral fracture of the distal femoral diaphysis. Right hip and right knee prostheses are in place as well. Head CT:head CT showed mild atrophy and chronic ischemic changes, typical for age. Meds: Medications Acetaminophen (Tylenol) 650 mg PO Q6HP PRN PRN Reason: PAIN/FEVER > 101 Acetaminophen/Hydrocodone Bitart ([place] 10/325mg) 0 tab PO Q4HP PRN PRN Reason: Pain Last Admin: 11/13/16 10:16 Dose: 1 tab Bisacodyl (Dulcolax) 10 mg ND Q2-3DAYS PRN PRN Reason: Constipation Calcium Carbonate/Glycine (Tums) 500 mg CHEWED BIDAC [facility] Last Admin: 11/13/16 07:57 Dose: 500 mg Carvedilol (Coreg) 3.125 mg PO BIDCC [facility] Last Admin: 11/13/16 10:14 Dose: 3.125 mg Docusate Sodium (Colace) 100 mg PO BID [facility] Last Admin: 11/13/16 10:15 Dose: 100 mg Famotidine (Pepcid) 20 mg PO BID [facility] Last Admin: 11/13/16 10:16 Dose: 20 mg Furosemide (Lasix) 20 mg PO QDAY [facility] Last Admin: 11/13/16 10:16 Dose: 20 mg Glucosamine/Chondroitin (Glucosamine-Chondroitin Cap) 1 cap PO DAILY [facility] Last Admin: 11/13/16 10:15 Dose: Not Given Hydromorphone HCl (Dilaudid) 0 mg IV Q2HP PRN PRN Reason: Pain Last Admin: 11/13/16 09:06 Dose: 1 mg Sodium Chloride (Sodium Chloride 0.9%) 1,000 mls @ 100 mls/hr IV .Q10H [facility] Last Admin: 11/13/16 07:34 Dose: 100 mls/hr Magnesium Hydroxide (Milk Of Magnesia) 30 ml PO BIDP PRN PRN Reason: Constipation Methocarbamol (Robaxin) 750 mg PO Q6HP PRN PRN Reason: Muscle Spasm Naloxone HCl (Narcan) 0.1 mg IV Q2MIN PRN PRN Reason: Opiate Reversal Ondansetron HCl (Zofran Odt) 4 mg SL Q6HP PRN PRN Reason: Nausea And Vomiting Ondansetron HCl (Zofran) 4 mg IV Q4HP PRN PRN Reason: Nausea And Vomiting Pantoprazole Sodium (Protonix) 40 mg PO QAMAC [facility] Last Admin: 11/13/16 07:57 Dose: 40 mg Polyethylene Glycol (Miralax) 17 gm PO QDAY [facility] Last Admin: 11/13/16 10:15 Dose: 17 gm Potassium Ch[facility] (K[facility]ur) [facility] Last Admin: 11/13/16 10:15 Dose: 10 meq Prenat Multivit/Lyman/Iron/Folic Ac ( Vitamin) 1 tab PO DAILY [facility] Last Admin: 11/13/16 10:16 Dose: Not Given Senna (Senokot) 1 tab PO QHS [facility] Last Admin: 11/12/16 22:52 Dose: Not Given Sodium Biphosphate/Sodium Phosphate (Fleets Adult) 1 dose ND Q3-4DAYS PRN PRN Reason: Constipation Sodium Chloride (Saline Flush) 10 ml IV Q8 [facility] Last Admin: 11/13/16 05:45 Dose: 10 ml Throat Lozenges (Cepacol) 1 lozenge PO PRN PRN PRN Reason: Sore Throat Vitamin D (Vitamin D3) 1,500 unit PO DAILY [facility] Last Admin: 11/13/16 10:16 Dose: 1,500 unit Warfarin Sodium (Coumadin) 2.5 mg PO DAILY@1400 [facility] Last Admin: 11/12/16 22:50 Dose: Not Given Medical - PN: A/P - Time Spent With Patient Total time spent is greater than 50% in coordination of care (as documented) at patient's floor/unit and/or counseling patient: (1) Femur fracture Status: Acute Current Visit: Yes (2) Atrial fibrillation Status: Chronic Current Visit: No (3) CAD (coronary artery disease) Status: Chronic Current Visit: No (4) Hypertension Status: Chronic Current Visit: No (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 Martino Status: Chronic Current Visit: No - Narrative A/P Narrative: #1. Orthopedics. -Femur fracture. status post ORIF. She will remain nonweightbearing for at least 4 weeks. -physical therapy and occupational therapy has begun. -Pain meds as needed. #2. Cardiac. -history of coronary disease and CHF. -.continue Coreg and Lasix. O2 saturations had been a bit low with sleep, and we are continuing with supplemental oxygen. -history of atrial fibrillation.-resumed warfarin after surgery. INR is near therapeutic today. Continue to monitor. -hypertension: Blood pressures are in a good range. #3. Chronic pain, appears likely, given her history. #4. DVT prophylaxis: Continue warfarin. #5. CODE STATUS: The patient seemed to want a full code , but the daughter is discussing change in status with her. #6. Neurologic. History of dementia.she did have some confusion last night, but appears back to baseline this morning. #7. GI. Continue proton pump inhibitor for ulcer prophylaxis. #8. Infectious disease. -the patient does have a history of an MRSA UTI. urinalysis does not show signs of infection at this time. #9. History of osteoporosis, which likely contributed to her fracture. Continue calcium and vitamin D supplements. it is not entirely clear if she has been receiving probably injections lately. #10. Hematologic. -The patient has had a significant drop in her hematocrit postop. We will continue to monitor and probably want to keep her hemoglobin above 8, due to her history of coronary disease. this visit took approximately 25 minutes today, to review test results, interview and examine her, review her case with nursing staff and physical therapy, and write orders. Medical - PN: Qual - VTE Deep Vein Thrombosis/Pulmonary Embolism Present on Admission: No
[2016-11-13] MEDS: WARFARIN 2.5 MG TABLET PO SCH (14:16)
[2016-11-13] MEDS ORDERED: BISACODYL 10 MG SUPP.RECT PR PRN (17:16)
[2016-11-13] MEDS ORDERED: MAGNESIUM HYDROXIDE 30 ML ORAL.SUSP PO PRN (17:16)
[2016-11-13] MEDS ORDERED: ONDANSETRON ODT 4 MG TABLET SL PRN (17:16)
[2016-11-13] MEDS ORDERED: NALOXONE HCL 0.4 MG/ML VIAL IV PRN (17:16)
[2016-11-13] MEDS ORDERED: BENZOCAINE/MENTHOL 1 LOZENGE PO PRN (17:16)
[2016-11-13] MEDS ORDERED: ONDANSETRON 4 MG/2 ML VIAL IV PRN (17:16)
[2016-11-13] MEDS ORDERED: HYDROcodone/APAP 10/325MG TABLET PO PRN (17:16)
[2016-11-13] MEDS ORDERED: HYDROmorphone 2 MG/ML SYRINGE IV PRN (17:16)
[2016-11-13] MEDS: CARVEDILOL 3.125 MG TABLET PO SCH (19:25)
[2016-11-13] MEDS: SENNOSIDES 1 TABLET PO SCH (21:14)
[2016-11-14] MEDS: ACETAMINOPHEN 325 MG TABLET PO PRN ×3 (01:51→21:20)
[2016-11-14] MEDS: METHOCARBAMOL 750 MG TABLET PO PRN ×2 (01:52→21:20)
[2016-11-14] MEDS: 0.9 % SODIUM CHLORIDE 1,000 ML IV SCH ×2 (04:24→13:29)
[2016-11-14] MEDS: 0.9 % SODIUM CHLORIDE 10 ML SYRINGE IV SCH ×3 (07:51→22:42)
[2016-11-14] MEDS: FUROSEMIDE 20 MG TABLET PO SCH (09:56)
[2016-11-14] MEDS: PANTOPRAZOLE 40 MG TABLET PO SCH (09:56)
[2016-11-14] MEDS: CALCIUM CARBONATE 500 MG TAB.CHEW CHEWED SCH ×2 (09:56→18:02)
[2016-11-14] MEDS: VITAMIN D3 1,000 UNIT TABLET PO SCH (09:56)
[2016-11-14] MEDS: DOCUSATE SODIUM 100 MG CAPSULE PO SCH ×2 (09:57→21:15)
[2016-11-14] MEDS: CARVEDILOL 3.125 MG TABLET PO SCH ×2 (09:57→18:02)
[2016-11-14] MEDS: FAMOTIDINE 20 MG TABLET PO SCH ×2 (09:57→21:15)
[2016-11-14] MEDS: POLYETHYLENE GLYCOL 3350 17 GM PACKET PO SCH (09:57)
[2016-11-14] MEDS: PRENATAL VIT/IRON FUMARATE/FA 1 TAB TABLET PO SCH (10:08)
[2016-11-14] MEDS: GLUCOSAMINE/CHONDROITIN SULF A 1 CAP CAPSULE PO SCH (10:08)
[2016-11-14] MEDS: POTASSIUM CHLORIDE 10 MEQ TABLET PO SCH (10:12)
--- NOTE | 2016-11-14 10:16 | XRay Report ---
CLINICAL INFORMATION: Postop fever COMPARISON: 11/11/2016 FINDINGS: Marked cardiomegaly is unchanged. The dual-chamber pacemaker and leads in stable satisfactory position. Mediastinum is unremarkable. The pulmonary vessels are mildly distended - no definite edema. Small vague infiltrate noted in the right base. Small bilateral pleural effusions noted IMPRESSION: 1. Mild CHF or volume overload 2. Mild right basilar infiltrate - new Interpreted and Authenticated by: Nitin Morrison 11/14/16
[2016-11-14 11:13] LABS: ALT/SGPT 14 U/l (0-40); Albumin 3.1 gm/dL (3.2-5.2); Albumin/Globulin Ratio 1.1 (1.0-2.3); Alkaline Phosphatase 37 U/L (39-117); Bilirubin,Direct 0.3 mg/dL (0.0-0.3); Blood Urea Nitrogen 14 mg/dl (8-23); Gamma Glutamyl Transpeptidase 20 U/L (5-36); Magnesium 1.8 mg/dL (1.6-2.5); Phosphorous 1.3 mg/dL (2.7-4.5); Uric Acid 2.9 mg/dL (2.5-8.0)
[2016-11-14 11:14] LABS: Basophils # (Auto) 0 K/mcL (0.0-0.3); Basophils % (Auto) 0.2 % (0.0-2.0); Eosinophils # (Auto) 0.1 K/mcL (0.0-0.7); Eosinophils % (Auto) 1.2 % (0.0-7.0); Granulocytes % (Auto) 78.1 % (38.0-78.0); Lymphocytes # (Auto) 1.2 K/mcL (1.5-4.8); Lymphocytes % (Auto) 10.6 % (15.5-49.0); Mean Cell Volume 95.8 fL (80.0-100.0); Mean Corpuscular Hemoglobin 30.7 pg (26.0-34.0); Monocytes # (Auto) 1.1 K/mcL (0.1-0.9); Monocytes % (Auto) 9.9 % (1.0-9.0); Platelet Count 114 K/mcL (140-440); RBC 2.65 M/mcL (4.00-5.20); Red Cell Distribution Width 13.9 % (11.5-14.5)
--- NOTE | 2016-11-14 11:59 | Orthopedic Progress Note ---
Subjective Patient information: Note initiated : 11/14/16 at 11:57 am Service Date, if different from initiated Date: [] Patient: Carolina Sweeney 86 y/o F admitted on 11/11/16 for Fall/Right Femur Fracture. Chief Complaint: [] Interval history: Patient is in a good amount of pain but says the majority is in her ribs. She is otherwise doing okay. No other acute symptoms. Objective Vital signs: Vital Signs Temp Pulse Resp BP Pulse Ox 11/14/16 07:06 100.0 F H 80 22 117/49 97 11/14/16 03:55 100.9 F H 82 24 93/43 93 11/13/16 23:11 98.9 F 80 20 96/50 95 11/13/16 20:00 99.4 F 85 20 110/48 93 11/13/16 19:00 94 11/13/16 16:00 98.6 F 84 20 111/50 98 11/13/16 15:00 80 20 104/48 97 11/13/16 14:00 98.9 F 80 14 101/48 98 11/13/16 13:00 98.7 F 80 16 102/48 96 11/13/16 12:00 98.8 F 80 18 108/46 97 11/13/16 11:00 83 20 118/30 95 Intake and Output 11/13/16 11/14/16 11/14/16 20:59 05:59 13:59 Intake Total Output Total Balance Intake: IV Sodium Chloride 0.9% 1, 000 ml @ 100 mls/hr IV . Q10H [facility] Rx#:[id number] Oral Output: Urine Catheter Amount Other: Meal Percent of Meal Consumed Weight Intake & Output: Intake & Output 11/13/16 11/14/16 11/14/16 20:59 05:59 13:59 Intake Total Output Total Balance Weight Intake: IV Sodium Chloride 0.9% 1, 000 ml @ 100 mls/hr IV . Q10H [facility] Rx#:[id number] Oral Output: Urine Catheter Amount Other: Meal Percent of Meal Consumed Incision clean and dry: Yes Dressing: Yes clean, Yes dry, Yes intact Extremities exam IM: Yes Foot pink and warm, Yes neurovascular intact - Periperhal Pulses Peripheral pulses: 2+: dorsalis pedis (R) - Labs CBC & BMP: 11/14/16 10:02 11/14/16 10:02 Labs: Orthopedic Labs 11/14/16 11/13/16 11/12/16 04:40 04:10 14:00 POC PT 18.4 H PT 20.1 H 22.7 H POC INR 1.6 H INR 1.7 H 1.9 H 11/12/16 06:30 POC PT PT 29.3 H POC INR INR 2.7 H 11/14/16 11/14/16 11/13/16 10:02 04:40 04:10 Hgb 8.1 L 7.9 L 9.4 L Hct 25.4 L 24.3 L 28.8 L 11/12/16 05:10 Hgb 11.2 L Hct 34.9 L Assessment and Plan (1) Femur fracture, right 1. For her pain we will try 0.5 - 2 tabs of hydrocodone 5 mg 2. She is to remain NWB on RLE 3. Plan for xfer to SNF this week 4. Social work consult Status: Acute
[2016-11-14] MEDS ORDERED: HYDROcodone/APAP 5/325MG TABLET PO PRN (12:02)
[2016-11-14] MEDS: cefTRIAXone 1 GM in DEXTROSE 5% IN WATER 50 ML IV SCH (13:27)
--- NOTE | 2016-11-14 14:01 | Internal Med Progress Note ---
Medical - PN: Subj Patient information: Note initiated : 11/14/16 at 2:01 pm Service Date, if different from initiated Date: [] Patient: Carolina Sweeney 86 y/o F admitted on 11/11/16 for Fall/Right Femur Fracture. Chief Complaint: [] Interval history: November 11, 2016:History of present illness: Ms. Sweeney is a 86 year old female the pacemaker, on chronic anticoagulation therapy who had a fall at her [place] facility today. She believes she tried to stand up and turn and just did that poorly and lost her balance and fell Her memory does not appear entirely intact however. eR evaluation did show a distal right femur fracture. The patient is now admitted for treatment. She does have a past history of an MRSA UTI. November 12, 2016: This morning,the patient reports she is feeling fine, as long she does not move her right leg at all. She denies fever or chills, chest pain palpitations, shortness of breath. She denies abdominal pain, nausea or vomiting, diarrhea or constipation, dysuria. Nursing staff did note that her O2 saturations tend to drop during sleep, so oxygen is in place. -INR remains elevated today, and orthopedics needs this to be less than 1.4 prior to surgery. November 13, 2016: the patient did have her right leg ORIF yesterday, after reversal of her Coumadin. She did have some confusion postop, and was transferred to the ICU and telemetry for closer observation. She has done pretty well overnight. Today she has a fair amount of pain with any movement, but otherwise does not have a lot of complaints. She denies fever or chills, chest pain or palpitations, shortness of breath or cough. She initially denied any GI symptoms, but did complain of soreness in the right upper quadrant area on exam. -she is to remain completely nonweightbearing on her leg for at least 4 weeks Physical therapy was in to evaluate her today, but she could not tolerate much at this time. November 14, 2016: today, the patient says she really is not feeling very well. She is having a great deal of pain mainly in the right upper quadrant and right lower rib areas. She denies subjective fever or chills, cough or shortness of breath or other chest pain. She denies abdominal pain, but doesn't really have much of an appetite. She denies nausea or vomiting, diarrhea or constipation. Her night's notes she did have a bowel movement today. She cannot really recall if she fell on her chest or hit her ribs when she fell prior to admission. chest x-ray from this morning is suggestive of a mild right basilar infiltrate, as well as mild volume overload. - Constitutional Vitals: Vital Signs Temp Pulse Resp BP Pulse Ox 99.0 F 83 22 120/53 97 11/14/16 11:00 11/14/16 11:00 11/14/16 11:00 11/14/16 11:00 11/14/16 11:00 Period Temp Pulse Resp BP Sys/Yu Pulse Ox Last 24 Hr 98.6 F-100.9 F 80-85 14-24 93-120/43-53 93-98 Intake and Output 11/14/16 11/14/16 11/14/16 05:59 13:59 21:59 Intake Total Output Total Balance Weight Intake & Output: Intake & Output 11/14/16 11/14/16 11/14/16 05:59 13:59 21:59 Intake Total Output Total Balance Weight Intake: IV Sodium Chloride 0.9% 1, 000 ml @ 100 mls/hr IV . Q10H [facility] Rx#:[id number] Oral Output: Urine Catheter Amount Other: Meal Percent of Meal Consumed Exam: On exam,she appears generally uncomfortable.she is awake and alert, and cooperative, but tends to yell out if her torso is moved at all, complaining of pain in the right upper quadrant area. She reports the pain in her right upper quadrant area is worse than the pain in her leg at this point. Neck is supple without obvious JVD or lymphadenopathy. Cardiac exam shows regular rate and rhythm. Lung exam: She's got somewhat decreased breath sounds at the bases, but otherwise lungs are clear. I believe she is splinting. Abdomen: The patient has markedly tenderness in the right upper quadrant area and also over the right lower anterior ribs. There is some guarding there. There is no obvious rebound, and bowel sounds are active. Extremities: Right lower extremity appears to still be swollen, but is wrapped and in a brace. Toes have good vascular refill. Left lower extremity appears normal. Neurologic: The patient is awake and alert, and appears to answer questions appropriately. Motor exam is grossly nonfocal. Medical - PN: Obj Da - Labs CBC & Chem 7: 11/14/16 10:02 11/14/16 10:02 Labs: Abnormal Lab Results 11/14/16 11/14/16 11/14/16 10:02 10:02 04:40 WBC 11.2 H RBC 2.65 L Hgb 8.1 L Hct 25.4 L RDW Plt Count 114 L Gran % 78.1 H Lymph % (Auto) 10.6 L Mellette % (Auto) 9.9 H Gran # 8.7 H Lymph # 1.2 L Mellette # 1.1 H POC PT PT 20.1 H POC INR INR 1.7 H Glucose 167 H Calcium 8.4 L Phosphorus 1.3 L Alkaline Phosphatase 37 L Total Protein 5.8 L Albumin 3.1 L 11/14/16 11/13/16 11/13/16 04:40 04:10 04:10 WBC RBC Hgb 7.9 L 9.4 L Hct 24.3 L 28.8 L RDW Plt Count Gran % Lymph % (Auto) Mellette % (Auto) Gran # Lymph # Mellette # POC PT PT 22.7 H POC INR INR 1.9 H Glucose Calcium Phosphorus Alkaline Phosphatase Total Protein Albumin 11/12/16 11/12/16 11/12/16 14:00 06:30 05:10 WBC RBC Hgb Hct RDW Plt Count Gran % Lymph % (Auto) Mellette % (Auto) Gran # Lymph # Mellette # POC PT 18.4 H PT 29.3 H POC INR 1.6 H INR 2.7 H Glucose 111 H Calcium Phosphorus Alkaline Phosphatase 33 L Total Protein Albumin 11/12/16 05:10 WBC RBC 3.68 L Hgb 11.2 L Hct 34.9 L RDW 14.6 H Plt Count Gran % Lymph % (Auto) 14.6 L Mellette % (Auto) 10.3 H Gran # Lymph # 1.3 L Mellette # POC PT PT POC INR INR Glucose Calcium Phosphorus Alkaline Phosphatase Total Protein Albumin November 14: -Temperature has been as high as 100.9 since midnight. she is about 2 L ahead on fluids since admission. -differential on today's CBC does show 8700 neutrophils - chest x-ray shows mild right basilar infiltrate and small bilateral pleural effusions. Pulmonary vessels are mildly distended. November 11: urinalysis from November 11, was essentially normal. EKG:appears to be paced with a heart rate of about 70. Chest x-ray:he heart is markedly enlarged, but unchanged. Pacemaker leads are seen. There is minor upper pulmonary vessel distention. Femur x-ray:x-ray of the right leg shows a mildly displaced and minimally angulated spiral fracture of the distal femoral diaphysis. Right hip and right knee prostheses are in place as well. Head CT:head CT showed mild atrophy and chronic ischemic changes, typical for age. Meds: Medications Acetaminophen (Tylenol) 650 mg PO Q6HP PRN PRN Reason: PAIN/FEVER > 101 Last Admin: 11/14/16 09:57 Dose: 650 mg Acetaminophen/Hydrocodone Bitart (Midway 5/325mg) 0.5 - 2 tab PO Q4HP PRN PRN Reason: Pain Bisacodyl (Dulcolax) 10 mg RI Q2-3DAYS PRN PRN Reason: Constipation Calcium Carbonate/Glycine (Tums) 500 mg CHEWED BIDAC [facility] Last Admin: 11/14/16 09:56 Dose: 500 mg Carvedilol (Coreg) 3.125 mg PO BIDCC [facility] Last Admin: 11/14/16 09:57 Dose: 3.125 mg Docusate Sodium (Colace) 100 mg PO BID [facility] Last Admin: 11/14/16 09:57 Dose: 100 mg Famotidine (Pepcid) 20 mg PO BID [facility] Last Admin: 11/14/16 09:57 Dose: 20 mg Furosemide (Lasix) 20 mg PO QDAY [facility] Last Admin: 11/14/16 09:56 Dose: 20 mg Glucosamine/Chondroitin (Glucosamine-Chondroitin Cap) 1 cap PO DAILY [facility] Last Admin: 11/14/16 10:08 Dose: 1 cap Hydromorphone HCl (Dilaudid) 0 mg IV Q2HP PRN PRN Reason: Pain Sodium Chloride (Sodium Chloride 0.9%) 1,000 mls @ 100 mls/hr IV .Q10H [facility] Last Admin: 11/14/16 13:29 Dose: Not Given Ceftriaxone Sodium 1 gm/ (Dextrose) 50 mls @ 100 mls/hr IV Q24H [facility] Last Admin: 11/14/16 13:27 Dose: 100 mls/hr Metronidazole (Flagyl) 500 mg in 100 mls @ 100 mls/hr IV Q8H [facility] Magnesium Hydroxide (Milk Of Magnesia) 30 ml PO BIDP PRN PRN Reason: Constipation Methocarbamol (Robaxin) 750 mg PO Q6HP PRN PRN Reason: Muscle Spasm Last Admin: 11/14/16 01:52 Dose: 750 mg Naloxone HCl (Narcan) 0.1 mg IV Q2MIN PRN PRN Reason: Opiate Reversal Ondansetron HCl (Zofran) 4 mg IV Q4HP PRN PRN Reason: Nausea And Vomiting Ondansetron HCl (Zofran Odt) 4 mg SL Q6HP PRN PRN Reason: Nausea And Vomiting Pantoprazole Sodium (Protonix) 40 mg PO QAMAC [facility] Last Admin: 11/14/16 09:56 Dose: 40 mg Polyethylene Glycol (Miralax) 17 gm PO QDAY [facility] Last Admin: 11/14/16 09:57 Dose: 17 gm Potassium Chloride (Kdur) 10 meq PO QAC [facility] Last Admin: 11/14/16 10:12 Dose: 10 meq Prenat Multivit/Milam/Iron/Folic Ac ( Vitamin) 1 tab PO DAILY [facility] Last Admin: 11/14/16 10:08 Dose: 1 tab Senna (Senokot) 1 tab PO QHS [facility] Last Admin: 11/13/16 21:14 Dose: 1 tab Sodium Chloride (Saline Flush) 10 ml IV Q8 [facility] Last Admin: 11/14/16 07:51 Dose: Not Given Throat Lozenges (Cepacol) 1 lozenge PO PRN PRN PRN Reason: Sore Throat Vitamin D (Vitamin D3) 1,500 unit PO DAILY [facility] Last Admin: 11/14/16 09:56 Dose: 1,500 unit Warfarin Sodium (Coumadin) 2.5 mg PO DAILY@1400 [facility] Medical - PN: A/P - Time Spent With Patient Total time spent is greater than 50% in coordination of care (as documented) at patient's floor/unit and/or counseling patient: (1) Femur fracture Status: Acute Current Visit: Yes (2) Atrial fibrillation Status: Chronic Current Visit: No (3) CAD (coronary artery disease) Status: Chronic Current Visit: No (4) Hypertension Status: Chronic Current Visit: No (5) [facility] current use of anticoagulant therapy Problem details: currently on coumadin Status: Chronic Current Visit: No (6) Memory Loss Status: Chronic Current Visit: No (7) Osteoporosis Problem details: T=-4.5 left forearm Status: Chronic Current Visit: No (8) Sinoatrial node dysfunction Problem details: 09/13/14- Dr. Martino Status: Chronic Current Visit: No - Narrative A/P Narrative: #1. Infectious disease. -the patient does have a low-grade fever today, as well as elevated white blood cell count and chest x-ray evidence of possible right basilar pneumonia. I will start her on ceftriaxone for typical organisms, as well as metronidazole for anaerobes, and place of aspiration. she is really not bringing up sputum to send for sputum culture. Blood cultures have been ordered. -another concern would be occult PE. However she was therapeutic on her Coumadin until 2 days ago, and INR is nearly therapeutic at this time. If her symptoms do not improve, we might want to do a CT angiogram, however we are already working on getting her therapeutic on her Coumadin, and she will therefore be covered either way. #2. Cardiac. -history of coronary disease and CHF. -she may be a little bit wet on the chest x-ray, and I will discontinueIV fluids at this time. -.continue Coreg and Lasix. O2 saturations had been a bit low with sleep, and we are continuing with supplemental oxygen. -history of atrial fibrillation.-resumed warfarin after surgery. INR is near therapeutic today. Continue to monitor. -hypertension: Blood pressures are in a good range. - #3. Chronic pain, appears likely, given her history. #4. DVT prophylaxis: Continue warfarin. #5. CODE STATUS: The patient seemed to want a full code , but the daughter is discussing change in status with her. #6. Neurologic. History of dementia.she did have some confusion , but appears back to baseline this morning. #7. GI. Continue proton pump inhibitor for ulcer prophylaxis. -for her right upper quadrant pain, I will check rib x-rays today. Liver function tests look fine, so I doubt there is a gallbladder or liver issue. However, if we cannot sort this out, we may want to proceed with CT scan or sonogram.. #8. Orthopedics. -Femur fracture. status post ORIF. She will remain nonweightbearing for at least 4 weeks. -physical therapy and occupational therapy has begun. -Pain meds as needed. #9. History of osteoporosis, which likely contributed to her fracture. Continue calcium and vitamin D supplements. it is not entirely clear if she has been receiving probably injections lately. #10. Hematologic. -The patient has had a significant drop in her hematocrit postop. We will continue to monitor and probably want to keep her hemoglobin above 8, due to her history of coronary disease. 311. Renal. Phosphorus levels a bit low. We can supplement this orally. 312. Endocrine. Glucose is a bit high. I don't believe she has a history of diabetes. We will continue to monitor this. this visit took approximately 40 minutes today, to review test results, interview and examine her, review her case with nursing staff and family, and write orders. Medical - PN: Qual - VTE Deep Vein Thrombosis/Pulmonary Embolism Present on Admission: No
[2016-11-14] MEDS: metroNIDAZOLE 500 MG/100 ML BAG IV SCH ×2 (14:08→21:20)
[2016-11-14] MEDS: WARFARIN 2.5 MG TABLET PO SCH (14:09)
[2016-11-14 14:52] LABS: Appearance,Urine CLEAR; Bacteria,Urine 0 /hpf (0); Bilirubin,Urine NEG (NEG); Calcium Oxalate Crystals,Urine FEW /hpf (0); Color,Urine YELLOW; Glucose,Urine (UA) NEGATIVE (NEG); Leukocyte Esterase,Urine NEG /uL (NEG); Mucus,Urine FEW /hpf (0); Nitrate,Urine NEG (NEG); Protein,Urine NEG (NEG); Specific Gravity,Urine 1.008 (1.000-1.035); Urine Blood 0.2 mg/dL (<0.03); Urine Hyaline Cast 3 /lpf (0-2); Urine RBC 2 /hpf (0-1); Urine Squamous Epithelial Cell 0 /hpf (0-4); Urine WBC 4 /hpf (0-4); Urobilinogen,Urine NEG (NEG)
--- NOTE | 2016-11-14 20:02 | XRay Report ---
CLINICAL INFORMATION: Rib pain COMPARISON: 06/01/2016 FINDINGS: The heart is mildly enlarged - as previously seen. Upper lobe pulmonary vessels are mildly distended - no no edema. Visualized right lung is clear and there is no evidence of pneumo or hemothorax. There appears the subtle hairline nondisplaced fractures of the anterior right seventh, eighth and ninth ribs. IMPRESSION: Acute nondisplaced fractures of the anterolateral right seventh, eighth and ninth ribs. Mild CHF Interpreted and Authenticated by: Nitin Morrison 11/14/16
[2016-11-14] MEDS: SENNOSIDES 1 TABLET PO SCH (21:15)
[2016-11-15] MEDS: ACETAMINOPHEN 325 MG TABLET PO PRN ×2 (03:41→09:58)
[2016-11-15] MEDS: METHOCARBAMOL 750 MG TABLET PO PRN ×2 (03:42→13:28)
[2016-11-15] MEDS: metroNIDAZOLE 500 MG/100 ML BAG IV SCH (05:25)
[2016-11-15] MEDS: 0.9 % SODIUM CHLORIDE 10 ML SYRINGE IV SCH (05:26)
[2016-11-15 05:32] LABS: Basophils # (Auto) 0 K/mcL (0.0-0.3); Basophils % (Auto) 0.3 % (0.0-2.0); Eosinophils # (Auto) 0.2 K/mcL (0.0-0.7); Eosinophils % (Auto) 1.6 % (0.0-7.0); Granulocytes % (Auto) 73.8 % (38.0-78.0); Lymphocytes # (Auto) 1.3 K/mcL (1.5-4.8); Lymphocytes % (Auto) 12.3 % (15.5-49.0); Mean Cell Volume 95.5 fL (80.0-100.0); Mean Corpuscular HGB Conc 32.5 g/dL (31.0-36.0); Mean Corpuscular Hemoglobin 31.1 pg (26.0-34.0); Monocytes # (Auto) 1.2 K/mcL (0.1-0.9); Platelet Count 120 K/mcL (140-440); RBC 2.54 M/mcL (4.00-5.20); Red Cell Distribution Width 14.4 % (11.5-14.5)
--- NOTE | 2016-11-15 07:50 | History and Physical Report ---
DATE OF ADMISSION: 11/11/2016 CHIEF COMPLAINT: Right leg pain. HISTORY: Carolina is a pleasant 86-year-old female who is on chronic anticoagulation therapy, who fell [facility]. She got up to get some candy, and she turned and lost her balance and fell, directly onto her right hip. She had a displaced distal femur fracture. She complains of no other pain or issues other than her leg. She did not hit her head, had no loss of consciousness, no other musculoskeletal complaints. PAST MEDICAL HISTORY: Atrial fibrillation, coronary artery disease, cardiomegaly, constipation, degenerative osteoarthritis, dermatitis, ear pain, fibromuscular dysplasia, gastroesophageal reflux disease, anemia, hyperlipidemia, hypertension, mitral stenosis with regurgitation, peptic ulcer disease, CHF, hypokalemia. PAST SURGICAL HISTORY: Spine surgery, ablation treatment, cataract surgery, cholecystectomy, EGD, laminectomy, left hip replacement, lumbosacral spine surgery, right hip replacement, right total knee replacement, varicose vein stripping, colonoscopy, tonsillectomy, pacemaker, VICTORINO/BSO. MEDICATIONS: Calcium. Carvedilol. Vitamin D3. Clobetasol ointment. Coenzyme Q10. Flaxseed oil. Furosemide. Glucosamine. Hydrocodone. Acetaminophen. Lactobacillus. Omeprazole. Polyethylene glycol. Potassium chloride. vitamins. Vitamin E. Vitamin A. Warfarin. ALLERGIES: PENICILLIN, SIMVASTATIN, and ASPIRIN. FAMILY HISTORY: Positive for cerebrovascular disease, breast cancer, colon cancer, cardiac disease. SOCIAL HISTORY: She currently lives alone in an assisted living facility at [facility]. She denies tobacco and alcohol. REVIEW OF SYSTEMS: No recent chest pain, shortness of breath, fever or chills, nausea, vomiting, diarrhea or constipation. PHYSICAL EXAMINATION: GENERAL: Resting on the hospital bed in no acute distress, alert and oriented times 3 and cooperative with exam. VITAL SIGNS: Temperature 97.8, pulse 79, respirations 19, BP 99/72, pulse 97 percent on room air. NECK: Nontender to palpation, full range of motion, bilateral upper extremities full range of motion, nontender to palpation. HEART: Regular rate and rhythm without murmur or gallop. CHEST: Clear to auscultation in all lung sarkar bilaterally. ABDOMEN: Soft, nontender, nondistended. LEFT LOWER EXTREMITY: Full range of motion, nontender to palpation. RIGHT LOWER EXTREMITY: She has external rotation and swelling at the distal femur. She is able to flex and extend the ankle and toes. Sensation is intact to __ throughout the extremity, 2+ DP and PT with capillary refill less than 2 seconds. DIAGNOSTIC DATA: Radiographs: 2-views of the right femur demonstrate a periprosthetic distal femur fracture between a total hip arthroplasty and a total knee arthroplasty, extending down to the total knee arthroplasty. Both implants appear to be stable. No dislocation noted. ASSESSMENT: Periprosthetic right distal femur fracture at the junction of the mid and distal third down to the total knee arthroplasty. PLAN: We talked about different options at this point. We felt that surgical intervention would be our best option. The plan will be for open reduction and internal fixation of her right periprosthetic femur fracture. The risks and benefits were discussed with the patient in detail including, but not limited to, the risks of anesthesia, problems with the heart or lungs related to anesthesia, infection, compromise or injury to the nerves and blood vessels, deep venous thrombosis, pulmonary embolism, pneumonia, continued pain after surgery, worsening pain or symptoms after surgery, swelling, loss of motion, need for repeat surgery, hardware failure, re-tear or failure of repair site, malunion, nonunion, and hardware pain requiring future removal. We talked about the by post-operative course in detail. She wishes to proceed. Shmuel Job ID: [id number] Doc ID: [id number] Arian Kolb MD
[2016-11-15] MEDS: PANTOPRAZOLE 40 MG TABLET PO SCH (07:51)
[2016-11-15] MEDS: CALCIUM CARBONATE 500 MG TAB.CHEW CHEWED SCH (07:51)
[2016-11-15] MEDS: cefTRIAXone 1 GM in DEXTROSE 5% IN WATER 50 ML IV SCH (09:38)
--- NOTE | 2016-11-15 09:50 | Operative Note ---
DATE OF OPERATION: 11/11/2016 PREOPERATIVE DIAGNOSIS: Right distal third femur fracture, periprosthetic with stable implant including the knee and hip. POSTOPERATIVE DIAGNOSIS: Right distal third femur fracture, periprosthetic with stable implant including the knee and hip. PROCEDURE PERFORMED: Open reduction and internal fixation of right periprosthetic distal femur fracture. SURGEON: Arian Kolb MD MANAGER OF LEARNING: Lior Dela Cruz PA-C ANESTHESIA: General. FINDINGS: Comminuted distal third femur fracture between the total hip prosthesis to the total knee prosthesis. IMPLANTS: Synthes distal femur locking plate with cortical screws, locking screws and 2 cables. INDICATIONS: The patient is an 86-year-old female. She fell yesterday evening and sustained a periprosthetic distal femur fracture. The total knee and total hip were stable. We talked about different options. She was medically cleared today for surgical intervention. At this point she wished to proceed. We discussed this in detail with her and her family. The risks and benefits were discussed with the patient in detail including, but not limited to, the risks of anesthesia, problems with the heart or lungs related to anesthesia, infection, compromise or injury to the nerves and blood vessels, deep venous thrombosis, pulmonary embolism, pneumonia, continued pain after surgery, worsening pain or symptoms after surgery, swelling, loss of motion, need for repeat surgery, hardware failure, re-tear or failure of repair site, malunion, nonunion, and hardware pain requiring future removal. OPERATION IN DETAIL: The patient was seen preoperatively where site and side were properly identified and marked, and all questions were answered. She was then transferred to the operating room and given 2 grams Ancef and general anesthesia was administered without complication. She was placed supine. She was prepped and draped in the usual fashion from the toes up to the abdomen. A standard lateral based incision was created from the distal femur around the knee up to the proximal third of the femur. Incision was carried down through the skin and subcutaneous tissue and a bone window was created medially and laterally. We split the IT band in line with the incision, came down teasing off the vastus lateralis muscle off the fascia to expose the femur. The femur was comminuted within about 4 to 6 cm of the tip of the total hip arthroplasty stem and down to the total knee, but neither of the implants were loose. We provisionally fixed the fracture and confirmed its reduction with the C-arm and placed clamps. We placed a 12-hole Synthes distal femoral locking plate. We placed cortical screws proximally and distally to secure the plate and then confirmed that its placement was in adequate position using the C-arm. We then placed locking screws proximally and distally, securing the fracture nicely. We placed two cables in the proximal extent of the plate around the area where the stem was intact and went more than 3 cortical diameters above the stem. We then confirmed that the fracture was anatomically reduced and the hardware was in good position. We thoroughly irrigated. We took the knee and hip through range of motion. They were stable. We used IrriSept and saline. We then closed the IT band split with 0 looped Maxon. The subcutaneous layer was closed out in layers starting with 0 Vicryl and then 3-0 Vicryl and the skin was closed with wagner. She was then dressed with Xeroform 4x4, ABD and an JAYMIE bandage. She was placed a knee ranger. She was then extubated, transferred to a stretcher and taken to the Post-Anesthetic Care Unit in stable condition. SPECIMENS: None. COMPLICATIONS: None. DRAINS: None. DISPOSITION: To PACU in stable condition. CONI:amena Job ID: [id number] Doc ID: [id number] Arian Kolb MD
[2016-11-15] MEDS: FUROSEMIDE 20 MG TABLET PO SCH (09:54)
[2016-11-15] MEDS: VITAMIN D3 1,000 UNIT TABLET PO SCH (09:55)
[2016-11-15] MEDS: CARVEDILOL 3.125 MG TABLET PO SCH (09:56)
[2016-11-15] MEDS: POTASSIUM CHLORIDE 10 MEQ TABLET PO SCH (09:56)
[2016-11-15] MEDS: DOCUSATE SODIUM 100 MG CAPSULE PO SCH (09:57)
[2016-11-15] MEDS: GLUCOSAMINE/CHONDROITIN SULF A 1 CAP CAPSULE PO SCH (09:57)
[2016-11-15] MEDS: FAMOTIDINE 20 MG TABLET PO SCH (09:57)
[2016-11-15] MEDS: POLYETHYLENE GLYCOL 3350 17 GM PACKET PO SCH (09:58)
[2016-11-15] MEDS: PRENATAL VIT/IRON FUMARATE/FA 1 TAB TABLET PO SCH (09:58)
--- NOTE | 2016-11-15 12:04 | Discharge Summary ---
Medical - DS: Prov Patient information: Note initiated : 11/15/16 at 11:59 am Service Date, if different from initiated Date: [] Patient: Carolina Sweeney 86 y/o F admitted on 11/11/16 for Fall/Right Femur Fracture. Chief Complaint: [] Date of admission: 11/11/16 23:30 Discharge date: 11/15/16 Primary care physician: [Dr. Carlin Rodriguez, phone #[phone]] Admitting clinician: Arlette Espana Consults: 11/11/16 21:28 Consult to Physician [CONS] Routine Comment: Consulting Provider: Nitin Kolb Reason For Exam: Physician to Consult Attending physician on discharge: Arlette Espana Medical - DS: Meds - Discharge Medications Prescriptions: HYDROcodone/APAP 5/325MG [Moro 5/325Mg] 0.5 - 2 tab PO Q4HP PRN #30 tablet PRN Reason: Pain Active and Home Medications: Home Medications flaxseed oil 5 ml MISCELLANE BID ml 02/27/15 [History Confirmed 11/11/16 Last Taken Unknown] glucosamine sulfate 1,000 mg capsule 1,000 mg PO QDAY cap 02/27/15 [History Confirmed 11/11/16 Last Taken Unknown] polyethylene glycol 3350 17 gram oral powder packet 17 g PO QDAY each 02/27/15 [History Confirmed 11/11/16 Last Taken Unknown] ocuixczs-Gh-byj-Fe-FA tablet 1 tab PO QDAY 02/10/16 [History Confirmed 11/11/16 Last Taken Unknown] vitamin E (dl, acetate) 400 unit capsule 400 unit PO QDAY 02/10/16 [History Confirmed 11/11/16 Last Taken Unknown] vitamins A,C,D-yvfu-fsqasm 14,320 unit-226 mg-200 unit capsule 1 cap PO QAM 03/20 [History Confirmed 11/11/16 Last Taken Unknown] calcium carbonate 600 mg (1,500 mg) tablet 1,500 mg PO QDAY tab 05/12/16 [ History Confirmed 11/11/16 Last Taken Unknown] carvedilol 3.125 mg tablet 3.125 mg PO BID #180 tab 05/12/16 [Rx Confirmed 11/11 Last Taken Unknown] cholecalciferol (vitamin D3) 1,000 unit capsule 1,500 unit PO QDAY cap [History Confirmed 11/11/16 Last Taken Unknown] coenzyme Q10 100 mg capsule 100 mg PO QDAY 05/12/16 [History Confirmed 11/11/16 Last Taken Unknown] furosemide 20 mg tablet 20 mg PO QDAY #30 tab 05/12/16 [Rx Confirmed 11/11/16 Last Taken Unknown] omeprazole 20 mg capsule,delayed release 20 mg PO QAM cap 05/12/16 [History Confirmed 11/11/16 Last Taken Unknown] hydrocodone 10 mg-acetaminophen 325 mg tablet 1 tab PO Q6H PRN #90 tab 09/27/16 [Rx Confirmed 11/11/16 Last Taken Unknown] Four wheeled walker 1 applic ONCE 11/11/16 [History Confirmed 11/11/16 Last Taken Unknown] Potassium Chloride 10 meq PO QAM 11/11/16 [History Confirmed 11/11/16 Last Taken Unknown] Warfarin [Coumadin] 2.5 mg PO DAILY 11/12/16 [History Confirmed 11/12/16 Last Taken 11/11/16 09:00] Medical - DS: Hosp Hospital course: Mr. Sweeney is a 86 year old male November 11, 2016:History of present illness: Ms. Sweeney is a 86 year old female the pacemaker, on chronic anticoagulation therapy who had a fall at her [facility] facility today. She believes she tried to stand up and turn and just did that poorly and lost her balance and fell Her memory does not appear entirely intact however. eR evaluation did show a distal right femur fracture. The patient is now admitted for treatment. She does have a past history of an MRSA UTI. November 12, 2016: This morning,the patient reports she is feeling fine, as long she does not move her right leg at all. She denies fever or chills, chest pain palpitations, shortness of breath. She denies abdominal pain, nausea or vomiting, diarrhea or constipation, dysuria. Nursing staff did note that her O2 saturations tend to drop during sleep, so oxygen is in place. -INR remains elevated today, and orthopedics needs this to be less than 1.4 prior to surgery. November 13, 2016: the patient did have her right leg ORIF yesterday, after reversal of her Coumadin. She did have some confusion postop, and was transferred to the ICU and telemetry for closer observation. She has done pretty well overnight. Today she has a fair amount of pain with any movement, but otherwise does not have a lot of complaints. She denies fever or chills, chest pain or palpitations, shortness of breath or cough. She initially denied any GI symptoms, but did complain of soreness in the right upper quadrant area on exam. -she is to remain completely nonweightbearing on her leg for at least 4 weeks Physical therapy was in to evaluate her today, but she could not tolerate much at this time. November 14, 2016: today, the patient says she really is not feeling very well. She is having a great deal of pain mainly in the right upper quadrant and right lower rib areas. She denies subjective fever or chills, cough or shortness of breath or other chest pain. She denies abdominal pain, but doesn't really have much of an appetite. She denies nausea or vomiting, diarrhea or constipation. Her night's notes she did have a bowel movement today. She cannot really recall if she fell on her chest or hit her ribs when she fell prior to admission. chest x-ray from this morning is suggestive of a mild right basilar infiltrate, as well as mild volume overload. November 15, 2016: -today, the patient continues to have significant pain in her right lower rib cage, as well as her right leg. She was able to get up to the bedside commode though, with significant assistance from staff. -She denies current fever or chills, cough or shortness of breath or chest pain. She did have a bowel movement today. She denies nausea or vomiting, diarrhea or dysuria She does still have a [place] catheter, mainly for convenience. 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/12/15 Dr Suarez - left external iliac artery Gait abnormality (Chronic) gait instability and weakness Gastroesophageal reflux (Chronic) Greater trochanteric bursitis of both hips (Chronic) 03/15/14 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 History of anemia (Chronic) Hyperlipidemia (Chronic) Hypertension (Chronic) Increased frequency of urination (Chronic) nocturnal Knee pain, right (Chronic) MCFP current use of anticoagulant therapy (Chronic) currently on coumadin Mitral stenosis with regurgitation (Chronic) 03/02/14 Neck pain (Chronic) right angle of the mandible, etiology unclear Onychomycosis (Chronic) Osteoarthritis (Chronic) severe degenerative, c-spine Osteopenia (Chronic) Osteoporosis (Chronic) T=-4.5 left forearm Peptic ulcer disease (Chronic) remote Peripheral vascular disease (Chronic) Schatzki's ring (Chronic) 11/14/14 Shoulder impingement syndrome (Chronic) 03/15/14 Sinoatrial node dysfunction (Chronic) 09/13/14- Dr. 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 Chavez Influenza A (Resolved) 09/17/14- Dr. 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 Martino Urinary tract infection (Resolved) Vaccine counseling (Resolved) Volume depletion (Resolved) Surgical History H/O cervical spine surgery (Resolved) decompression. 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 History of cataract surgery (Resolved) History of cholecystectomy (Resolved) History of esophagogastroduodenoscopy (Resolved) 11/14/14- Schatki's ring 02/01/11- gastritis, duodenitis, schatzki ring History of laminectomy (Resolved) decompression C1-2 History of left hip replacement (Resolved) History of lumbosacral spine surgery (Resolved) multiple lumbar surgeries History of right hip replacement (Resolved) History of total right knee replacement (Resolved) 05/2013 History of varicose vein stripping (Resolved) Hx of colonoscopy (Resolved) 01/28/11 diverticuli, adenoma Hx of tonsillectomy (Resolved) Pacemaker (Resolved) pacemaker/defibrillator Status post VICTORINO-BSO (Resolved) current medications: Acetaminophen (Tylenol) 650 mg PO Q6HP PRN PRN Reason: PAIN/FEVER > 101 Last Admin: 11/14/16 09:57 Dose: 650 mg Acetaminophen/Hydrocodone Bitart (Moro 5/325mg) 0.5 - 2 tab PO Q4HP PRN PRN Reason: Pain Bisacodyl (Dulcolax) 10 mg MT Q2-3DAYS PRN PRN Reason: Constipation Calcium Carbonate/Glycine (Tums) 500 mg CHEWED BIDAC [facility] Last Admin: 11/14/16 09:56 Dose: 500 mg Carvedilol (Coreg) 3.125 mg PO BIDCC [facility] Last Admin: 11/14/16 09:57 Dose: 3.125 mg Docusate Sodium (Colace) 100 mg PO BID [facility] Last Admin: 11/14/16 09:57 Dose: 100 mg Famotidine (Pepcid) 20 mg PO BID [facility] Last Admin: 11/14/16 09:57 Dose: 20 mg Furosemide (Lasix) 20 mg PO QDAY [facility] Last Admin: 11/14/16 09:56 Dose: 20 mg Glucosamine/Chondroitin (Glucosamine-Chondroitin Cap) 1 cap PO DAILY [facility] Last Admin: 11/14/16 10:08 Dose: 1 cap Hydromorphone HCl (Dilaudid) 0 mg IV Q2HP PRN PRN Reason: Pain Sodium Chloride (Sodium Chloride 0.9%) 1,000 mls @ 100 mls/hr IV .Q10H [facility] Last Admin: 11/14/16 13:29 Dose: Not Given Ceftriaxone Sodium 1 gm/ (Dextrose) 50 mls @ 100 mls/hr IV Q24H [facility] Last Admin: 11/14/16 13:27 Dose: 100 mls/hr Metronidazole (Flagyl) 500 mg in 100 mls @ 100 mls/hr IV Q8H [facility] Magnesium Hydroxide (Milk Of Magnesia) 30 ml PO BIDP PRN PRN Reason: Constipation Methocarbamol (Robaxin) 750 mg PO Q6HP PRN PRN Reason: Muscle Spasm Last Admin: 11/14/16 01:52 Dose: 750 mg Naloxone HCl (Narcan) 0.1 mg IV Q2MIN PRN PRN Reason: Opiate Reversal Ondansetron HCl (Zofran) 4 mg IV Q4HP PRN PRN Reason: Nausea And Vomiting Ondansetron HCl (Zofran Odt) 4 mg SL Q6HP PRN PRN Reason: Nausea And Vomiting Pantoprazole Sodium (Protonix) 40 mg PO QAMAC [facility] Last Admin: 11/14/16 09:56 Dose: 40 mg Polyethylene Glycol (Miralax) 17 gm PO QDAY [facility] Last Admin: 11/14/16 09:57 Dose: 17 gm Potassium Chloride (Kdur) 10 meq PO QAC [facility] Last Admin: 11/14/16 10:12 Dose: 10 meq Prenat Multivit/[employer]/Iron/Folic Ac ( Vitamin) 1 tab PO DAILY [facility] Last Admin: 11/14/16 10:08 Dose: 1 tab Senna (Senokot) 1 tab PO QHS [facility] Last Admin: 11/13/16 21:14 Dose: 1 tab Sodium Chloride (Saline Flush) 10 ml IV Q8 [facility] Last Admin: 11/14/16 07:51 Dose: Not Given Throat Lozenges (Cepacol) 1 lozenge PO PRN PRN PRN Reason: Sore Throat Vitamin D (Vitamin D3) 1,500 unit PO DAILY [facility] Last Admin: 11/14/16 09:56 Dose: 1,500 unit Warfarin Sodium (Coumadin) 2.5 mg PO DAILY@1400 [facility] physical exam: Neck is supple without obvious JVD or lymphadenopathy. Cardiac exam shows regular rate and rhythm. Lung exam: She's got somewhat decreased breath sounds at the bases, but otherwise lungs are clear. I believe she is splinting. Abdomen: The patient has markedly tenderness in the right lower anterior ribs. There is some guarding there. There is no obvious rebound, and bowel sounds are active. Extremities: Right lower extremity appears to still be swollen, but is wrapped and in a brace. Toes have good vascular refill. Left lower extremity appears normal. Neurologic: The patient is awake and alert, and appears to answer questions appropriately. Motor exam is grossly nonfocal. she continues to have some memory issues, but generally answers questions appropriately. A/P Narrative: #1. Infectious disease. -the patient did have a low-grade fever , as well as elevated white blood cell count and chest x-ray evidence of possible right basilar pneumonia. I will start her on ceftriaxone for typical organisms, as well as metronidazole for anaerobes, in case of aspiration. she is really not bringing up sputum to send for sputum culture. Blood cultures have been ordered. -she should continue antibiotics November 19. White blood cell count is improved today -another concern would be occult PE. However she was therapeutic on her Coumadin until 2 days ago, and INR is nearly therapeutic at this time. If her symptoms do not improve, we might want to do a CT angiogram, however she is now therapeutic on her Coumadin, and she will therefore be covered either way. #2. Cardiac. -history of coronary disease and CHF. -she may be a little bit wet on the chest x-ray, and IV fluids were discontinued. -.continue Coreg and Lasix. O2 saturations had been a bit low with sleep, and we are continuing with supplemental oxygen. -history of atrial fibrillation.-resumed warfarin. INR is near therapeutic today. Continue to monitor. -hypertension: Blood pressures are in a good range. - #3. Chronic pain, appears likely, given her history. #4. DVT prophylaxis: Continue warfarin. #5. CODE STATUS: The patient seemed to want a full code , but the daughter is discussing change in status with her. #6. Neurologic. History of dementia.she did have some confusion , but appears back to baseline this morning. #7. GI. Continue proton pump inhibitor for ulcer prophylaxis. -for her right upper quadrant pain, x-rays did reveal several rib fractures. It is not clear if that happened several weeks ago when she had a fall, or just with this more recent fall. Physical therapy will need to take care when they are using a belt to assist her ambulation. #8. Orthopedics. -Femur fracture. status post ORIF. She will remain nonweightbearing for at least 4 weeks. -physical therapy and occupational therapy has begun. -Pain meds as needed. #9. History of osteoporosis, which likely contributed to her fracture. Continue calcium and vitamin D supplements. it is not entirely clear if she has been receiving probably injections lately. #10. Hematologic. -The patient has had a significant drop in her hematocrit postop. We will continue to monitor and probably want to keep her hemoglobin above 8, due to her history of coronary disease. -his should be rechecked in the next day or 2. 311. Renal. Phosphorus levels a bit low. We can supplement this orally. 312. Endocrine. Glucose is a bit high. I don't believe she has a history of diabetes. We will continue to monitor this. this visit took approximately 35 minutes today, to review test results, interview and examine her, review her case with nursing staff and family, and write orders. Discharge diagnosis: spiral fracture right femur. Right rib fractures. Fall. Right basilar pne Secondary discharge diagnosis: right basilar pneumonia. Atrial fibrillation, with chronic Coumadin therapy. Dementia Worsening anemiaHyperglycemia - Time Spent with Patient Total time spent providing and/or coordinating discharge services: Medical - DS: Exam - Constitutional Vitals: Vital Signs Temp Pulse Resp BP BP Pulse Ox 11/15/16 10:00 97.8 F 80 14 140/70 11/15/16 09:23 96 11/15/16 06:59 98.0 F 80 14 144/68 98 11/15/16 03:45 97.6 F 80 20 133/56 99 11/14/16 23:46 99.2 F 80 20 104/46 96 11/14/16 20:00 98.3 F 80 22 98/43 98 11/14/16 15:00 98.2 F 80 18 117/46 97 Intake and Output 11/14/16 11/15/16 11/15/16 21:59 05:59 13:59 Intake Total 340 / 340 340 / 340 150 / 150 Output Total 420 / 420 950 / 950 Balance -80 / -80 -610 / -610 150 / 150 Intake: IV 100 / 100 100 / 100 150 / 150 Dextrose 5% in Water 50 50 / 50 ml @ 100 mls/hr IV Q24H BALDOMERO with Rocephin 1 gm Rx #:[id number] Oral 240 / 240 240 / 240 Output: Urine Catheter Amount 420 / 420 950 / 950 Other: Meal Lunch apple sauce Percent of Meal Consumed 50% 100% Feeding Ability Independent # Bowel Movements 1 Weight 167 lb Medical - DS: Data Labs on day of discharge: Labs from last 24 hours 11/15/16 11/15/16 11/14/16 04:40 04:40 14:06 WBC 10.2 RBC 2.54 L Hgb 7.9 L Hct 24.2 L MCV 95.5 MCH 31.1 MCHC 32.5 RDW 14.4 Plt Count 120 L MPV 8.9 Gran % 73.8 Lymph % (Auto) 12.3 L [place] % (Auto) 12.0 H Eos % (Auto) 1.6 Baso % (Auto) 0.3 Gran # 7.5 Lymph # 1.3 L [place] # 1.2 H Eos # 0.2 Baso # 0 PT 24.0 H INR 2.1 H Urine Color Yellow Urine Appearance Clear Urine pH 6.0 Ur Specific [place] 1.008 Urine Protein Neg Urine Glucose (UA) Negative Urine Ketones Neg Urine Occult Blood 0.2 A Urine Nitrate Neg Urine Bilirubin Neg Urine Urobilinogen Neg Ur Leukocyte Esterase Neg Urine RBC 2 H Urine WBC 4 Ur Squamous Epith Cells 0 Calcium Oxalate Crystal Few A Urine Bacteria 0 Hyaline Casts 3 H Urine Mucus Few Ur Culture Indicated? No November 14: -Temperature has been as high as 100.9 since midnight. she is about 2 L ahead on fluids since admission. -differential on today's CBC does show 8700 neutrophils - chest x-ray shows mild right basilar infiltrate and small bilateral pleural effusions. Pulmonary vessels are mildly distended. -x-ray of her right ribs shows acute nondisplaced fractures of the anterolateral right seventh, eighth, ninth ribs, as well as mild CHF. fractures are new when compared to an x-ray from June 01, 2016. November 11: urinalysis from November 11, was essentially normal. EKG:appears to be paced with a heart rate of about 70. Chest x-ray:he heart is markedly enlarged, but unchanged. Pacemaker leads are seen. There is minor upper pulmonary vessel distention. Femur x-ray:x-ray of the right leg shows a mildly displaced and minimally angulated spiral fracture of the distal femoral diaphysis. Right hip and right knee prostheses are in place as well. Head CT:head CT showed mild atrophy and chronic ischemic changes, typical for age. Medical - DS: A/P - Patient/Caregiver Discharge Instructions Activity: as per physical therapy Diet: Cardiac Prescriptions: HYDROcodone/APAP 5/325MG [Moro 5/325Mg] 0.5 - 2 tab PO Q4HP PRN #30 tablet PRN Reason: Pain Other Amb Orders: OT Discharge Order Location: Determined By Patient Physical Therapy at Discharge - General Location: Determined By Patient Complete Blood Count Time Frame: 1 Day, Location: Determined By Patient - Problem Maintenance (1) Femur fracture Status: Acute Qualifiers: Encounter type: initial encounter Fracture type: closed Fracture morphology: spiral Laterality: right (2) Atrial fibrillation Status: Chronic Qualifiers: Atrial fibrillation type: chronic Qualified Code(s): I48.2 - Chronic atrial fibrillation (3) CAD (coronary artery disease) Status: Chronic Qualifiers: Coronary Disease-Associated Artery/Lesion type: [place] artery [place] vs. transplanted heart: [place] heart Associated angina: without angina Qualified Code(s): I25.10 - Atherosclerotic heart disease of [place] coronary artery without angina pectoris (4) Hypertension Status: Chronic Qualifiers: Hypertension type: essential hypertension Qualified Code(s): I10 - Essential (primary) hypertension (5) MCFP current use of anticoagulant therapy Status: Chronic Comment: currently on coumadin (6) Memory Loss Status: Chronic (7) Osteoporosis Status: Chronic Comment: T=-4.5 left forearm (8) Sinoatrial node dysfunction Status: Chronic Comment: 09/13/14- Dr. Martino - Follow up Plan Follow up with: Carlin Nelson MD [Primary Care Provider] - Disposition: Xfer SNF Prognosis: Good Rehab Potential: Good I certify that the patient requires SNF services: Yes Overall status at discharge: patient is not back to baseline Medical - DS: Qual - VTE Deep Vein Thrombosis/Pulmonary Embolism Present on Admission: No
[2016-11-15] MEDS: WARFARIN 2.5 MG TABLET PO SCH (13:27)
== END 2016-11-15 14:25 | DRG 480 ==
LOC: ED 20:40 → MEDSUR 23:30 → ICU 11-12 17:02 → MEDSUR 11-13 16:25
PROVIDERS: ADMIT Internal Medicine; ATTEND Internal Medicine